=== PATIENT | female | born 1960 | race Caucasian/White ===

== ENCOUNTER 2025-02-12 07:52 | Day surgery (SDC) | payer OTHER, SELFPAY ==
--- OUTSIDE RECORDS SUMMARY | 2025-01-20 12:19 | XMS_ITS | Continuity of Care Document ---
Author Organization [facility] [address] [facility] [address] [place] [address] Phone [phone] Social History Type Date Description Comments Sex Unknown Medical Devices Description No Information Available Encounters Description No Information Available Assessments Description No Information Available Plan of Treatment No Information Available Functional Status Description No Information Available Mental Status Description No Information Available Referrals Description No Information Available
--- OUTSIDE RECORDS SUMMARY | 2025-01-20 12:19 | XMS_ITS ---
Author Organization [facility] Address [address] [place] [phone] Care Team Providers Care Director Telecommunications Name Role Phone Natasha Mg N.P Primary Care Provider Unavail amelia Aguayo Jr, Virgil Unavailable REASON FOR VISIT tested positive for covid Encounters Encounter Location Date Provider Diagnosis [facility] [address] [facility] [address] [place] [phone] 10/07/2024 Virgil Aguayo Jr PLAN OF TREATMENT Next Appt Details Provider Name:Virgil roy Jr, 02/12/2025 09:10:00 AM, [address] [place] [address] , [place], [place], [phone],
--- OUTSIDE RECORDS SUMMARY | 2025-01-20 12:19 | XMS_ITS ---
Author Organization [facility] Address [address] [facility] [address] [place] [phone] Care Team Providers Care Spring Intern Name Role Phone Natasha Mg N.P Primary Care Provider Unavail able Olivier Gao, Virgil Unavailable REASON FOR VISIT Patient presents today for a SCREENING COLON Encounters Encounter Location Date Provider Diagnosis [facility] [address] [place] [phone] 10/07/2024 Virgil Aguayo Jr PLAN OF TREATMENT Next Appt Details Provider Name:Virgil roy Jr, 02/12/2025 09:10:00 AM, [address] [facility] , [place], [place], [phone],
--- OUTSIDE RECORDS SUMMARY | 2025-01-20 12:19 | XMS_ITS ---
Author Name [facility] [place] [facility] [place] [facility] [place] Address [address] [place] [address] Care Team Providers Care Fiscal Economist Name Role Phone NATASHA MG Primary Care Provider Unavailabl e Insurance Providers: All historical and current Section Date Range: From patient's date of to the date document was created. This section includes the names of all active insurance providers for the patient. Insurance Provider Type of Coverage Plan Name Start of Policy Coverage End of Policy Coverage Group Number Member ID Insurance Provider's Telephone Number Policy Tapia's Name Patient's Relationship to Policy Tapia [facility]BS [facility] Jun 01, 2021 [id number] [phone] WEBER,DO NNA PATIENT ANTHEM BCBS OF [place] (BLUECARD) HIGH DEDUCTIBL E HEALTH PLAN [facility] HDHP Jun 01, 2021 52 [id number] WEBER,DO NNA PATIENT [place] MED[place] Jun 01, 2024 [id number] [phone] WEBER,DO NNA PATIENT BCBS [facility] Jun 01, 2020 [id number] [id number] WEBER,DO NNA PATIENT BCBS [facility] CE ORGANIZ CEN[place] Jun 01, 2016 [id number] WEBER,DO NNA PATIENT BCBS [facility] CE [facility]GANIZ [facility] May 02, 2011 [id number] WEBER,DO NNA PATIENT [place]IGH DEDUCTIBL E [facility] HDHP Jun 01, 2021 [id number] WEBER,DO NNA PATIENT BCBS OF [facility] TTS HIGH DEDUCTIBL E [facility] T HDHP Jun 01, 2021 [id number] WEBER,DO NNA PATIENT [employer] ([id number]) PRESCRIPT ION (HD ) Jun 01, 2021 [id number] WEBER,DO NNA PATIENT [employer] ([id number]) PRESCRIPT ION L4TA Jun 01, 2021 L4TA [id number] WEBER,DO NNA PATIENT [employer] ([id number]) PRESCRIPT ION L4TA HDHP Jun 01, 2021 L4TA [id number] WEBER,DO NNA PATIENT [employer] ([id number]) PRESCRIPT ION (HD ) Jun 01, 2021 L4TA [id number] WEBER,DO NNA PATIENT [employer] ([id number]) PRESCRIPT ION L4TA* May 02, 2011 L4TA [id number] WEBER,DO NNA PATIENT [employer] ([id number]) PRESCRIPT ION L4TA* May 02, 2011 L4TA [id number] WEBER,DO NNA PATIENT [employer] ([facility] [facility]) PRESCRIPT ION [facility] Jun 01, 2021 L4TA [id number] WEBER,DO NNA PATIENT MEDICARE (WNR) MEDICARE (M) PART A Jun 01, 2024 PART A [id number] WEBER,DO NNA PATIENT MEDICARE (WNR) MEDICARE (M) PART B Jun 01, 2024 PART B [id number] WEBER,DO NNA PATIENT [facility] CE ORGANIZ NON-G ROUP Dec 02, 2001 [facility] [id number] WEBER,DO NNA PATIENT [facility] PREFERRED PROVIDER ORGANIZAT ION (PPO) [place] [facility] IN[facility] N Sep 01, 2007 [id number] WEBER,DO NNA SPOUSE Selected Encounter This section includes the information on record at [place] for the Encounter. Date/Time Encounter Type Encounter Description Reason Provider Source Jan 27, 2024 09:39 AM MTMS BY PHARM EST 15 MIN CLINICAL PHARMACY ICD-10-CM Z79.01 [facility]PC (current) use of anticoagulants MAGDA CASTRO Alexander Encounter Template Text not used by [place] Assessments - Encounter Diagnoses This section includes the primary and secondary diagnoses documented for the Encounter. Date/Time Primary/Secondary Diagnosis Diagnosis Name Provider Source Jan 27, 2024 10:04 AM PRIMARY computer terminal operator (current) use of anticoagulants [facility] [place] [facility] Jan 27, 2024 10:04 AM SECONDARY Other pulmonary embolism without acute cor pulmonale [facility]STRO [facility] Plan of Treatment: Future Appointments (+ 6 months) and Future Tests (+/- 45 days) The Plan of Treatment section includes future care activities for the patient from all [place] treatmentfacilities. This section includes future appointments and future orders which are active, pending or scheduled. Future Appointments This section includes appointments that were scheduled to occur 6 months from the date of the Encounter, up to a maximum of 20 appointments. The data comes from all [place] treatment facilities. Appointment Date/Time Appointment Type Appointme nt Facility Name Jan 28, 2024 03:00 PM AMBULATORY - MEDICINE [facility] [place] [facility] Feb 17, 2024 10:00 AM AMBULATORY MEDICINE [facility] [place] [facility] Feb 21, 2024 08:45 AM AMBULATORY - MEDICINE [place] [facility] [place] [facility] Mar 13, 2024 04:00 PM AMBULATORY - MEDICINE [place] [facility] [place] [facility] April 08, 2024 02:30 PM AMBULATORY - MEDICINE [place] [facility] [place] [facility] April 09, 2024 01:00 PM AMBULATORY - MEDICINE [place] [facility] Social History: Smoking Status (Most current) and Tobacco Use (All prior to encounter date) This section includes the most current, and the historical, smoking and tobacco- related health factors from the [place] facility where the Encounter took place. Current Smoking Status This section includes the most current smoking, or tobacco-related health factor, from the [place] facility where the Encounter took place. Date/Time Current Smoking Status Comment Facil it Mar 25, 2023 01:30 PM VA-TOBACCO FORMER USER [place] [facility] Tobacco Use History This section includes a history of the smoking, or tobacco-related health factors, that were collected on or before the date of the Encounter. The data comes from the [place] facility where the Encounter took place. Date/Time Smoking Status/Tobac co Use Comment Facility Mar 25, 2023 01:30 PM VA-TOBACCO QUIT 15 YRS OR MORE [place] [facility] [place] [facility] Feb 14, 2022 01:30 PM VA-TOBACCO FORMER USER [facility] [place] [facility] Feb 14, 2022 01:30 PM VA-TOBACCO QUIT 5 TO < 15 YRS [place] [facility] [place] [facility] Nov 04, 2020 01:30 PM VA-TOBACCO NEVER USED VA [facility] [place] [facility] May 05, 2019 01:13 PM VA-TOBACCO NEVER USED VA [facility] [place] [facility] Jan 09, 2018 09:45 AM QUIT TOBACCO USE > 7 YEARS AGO [facility] [place] [facility] Nov 06, 2016 10:01 AM QUIT TOBACCO USE > 7 YEARS AGO Quit in 1995 [place] [facility] [place] [facility] Nov 05, 2015 09:40 AM QUIT TOBACCO USE > 7 YEARS AGO Quit in 1995 [place] [facility] [place] [facility] Feb 07, 2007 10:37 AM QUIT TOBACCO USE > 7 YEARS AGO quit 15 years ago [facility] Advance Directives: All historical and current Section Date Range: From patient's date of to the date document was created. This section includes ALL of a patient's completed or amended [place] Advance and Rescinded Directives. The entries below indicate that a directive exists for the patient, but an actual copy is not included with this document. The data comes from all [place] facilities. Date Advance Directives Provider Source Nov 07, 2006 ADVANCE DIRECTIVE [facility] Radiology Reports: +/- 30 days of the encounter Radiology Reports For cases when an order for radiology services may have been completed prior to the date of the Encounter, the report list includes the Radiology Reports that were completed up to 30 days before dateof the Encounter. For cases when an order for radiology services may have been completed after the date of the Encounter, the report list also includes the Radiology Reports that were completed up to30 days after date of the Encounter. The data comes from all [place] treatment facilities. Date/Time Radiology Report Provider Source Feb 21, 2024 08:45 AM OUTSIDE MAMMO/SCRE ENING, INCLUDING CAD, BILAT: WICHO WEBER APRIL [id number] [id number] F Exm Date: FEB 21, 2024@08:45 Req Phys: NATASHA MG Pat Loc: CWM/NO/PACT 5 (Req'g Loc) Img Loc: OUTSIDE GENERAL RADIOLOGY Service: Unknown (Case [id number] COMPLETE) OUTSIDE MAMMO/SCREENING, INCLUDIN(RAD Detailed) CPT:37732 Reason for Study: annual screening mammogram Clinical History: Report Status: Electronically Filed Date Reported: FEB 21, 2024 Report: Community care exam; see CPRS/JLV for outside radiology report/results Impression: Community care exam; see CPRS/JLV for outside radiology report/results Primary Diagnostic Code: BI-RADS CATEGORY 1 (Negative) VERIFIED BY: / *ELECTRONICALLY FILED* [facility] Encounter Notes: All associated encounter notes This section contains the clinical notes associated to the Encounter. Date/Time Encounter Note(s) Provider Source Jan 27, 2024 09:39 AM PHARMACY MEDICATIO N MGT NOTE: LOCAL TITLE: PHARMACY ANTICOAGULATION NOTE STANDARD TITLE: PHARMACY MEDICATION MGT NOTE DATE OF NOTE: JAN 27, 2024@09:39 ENTRY DATE: JAN 27, 2024@09:39:55 AUTHOR: MAGDA CASTRO EXP COSIGNER: URGENCY: STATUS: COMPLETED PHARMACY ANTICOAGULATION NOTE Has ADDENDA Follow-up: Anticoagulation DOAC Agent Progress Note Reason for visit: 4 week f/u for Apixaban/Eliquis Indication: DVT treatment Start Date: 01/03/24 Expected Duration: indefinite Referring Provider: Natasha Mg Patient Contact: Home: Patient has given permission to leave anticoagulation message on answering machine or with person listed. Subjective: Called pt for 4 wk f/u on apixaban. Pt offers below information Apixaban: Missed Doses: No Last Refill: 01/13/24 Refill Needed: No Administration Time: 10am and 10 pm Bleeding: No Dizziness/Vision Changes/Extremity Weakness: No Med Changes: No Alcohol: No Storage of Medication: Appropriate Surgeries/Procedures: No Other: (Optional) Objective: Labs: Patient reports outside Hgb results: Date: January 01, 2024 Results: 14.8 Location: Outside Healthcare Provider Patient reports outside HCT results: Date: January 01, 2024 Results: 43.3 Location: Outside Healthcare Provider Patient reports outside PLT results: Date: January 01, 2024 Results: 210 Location: Outside Healthcare Provider Patient reports outside SCR results: Date: January 01, 2024 Results: 0.8 Location: Outside Healthcare Provider Patient reports outside BUN results: Date: January 01, 2024 Results: 10 Location: Outside Healthcare Provider CRCL IBW: CrCl(est): 61.1 mL/min (Creat:0.77 03/25/23) CRCL ACT: No Creat CRCL ADJ: 61.1 mL/min (03/25/23) LFTs; spoke to patient about updating Vitals: Weight (BMI): 135.5 lb [61.46 kg] (01/10/2024 10:35) Height: 63 in [160.0 cm] (03/25/2023 13:32) BMI: 24.1 Active Outpatient Medications (including Supplies): APIXABAN 5MG TAB TAKE ONE TABLET BY MOUTH EVERY 12 HOURS ACTIVE FOR PREVENTION OF BLOOD CLOTS LEVOTHYROXINE NA (SYNTHROID) 50MCG TAB TAKE ONE TABLET BY ACTIVE MOUTH EVERY MORNING 30 MINUTES BEFORE BREAKFAST TAKE ON AN EMPTY STOMACH WITH A FULL GLASS OF WATER MIRTAZAPINE 30MG TAB TAKE ONE-HALF TABLET BY MOUTH AT ACTIVE BEDTIME FOR DEPRESSION/MOOD TRAMADOL HCL 50MG TAB TAKE TWO TABLETS BY MOUTH THREE ACTIVE TIMES DAILY NEEDED FOR PAIN Non-VA MULTIVITAMIN TAB BY MOUTH ACTIVE Interacting Meds with apixaban: none Assessment/Plan: - Pt taking medication appropriately; denies ADRs - Continue Apixaban 5mg twice daily - Pt has LFT labs ordered for next PCP visit. - Given completion of therapy x 4 weeks w/o concern, will D/C to passive monitoring via DOAC dashboard. Time Spent: 5 minutes Next Appt: N/A Discharge to passive monitoring Next PCP Appt: 03/25/24 EDUCATION Provided with verbal instructions: Yes Provided with written instructions: No Barriers to learning: No Readiness to learn: Yes Specific dose directions reviewed: Yes Opportunity for questions/discussion: Yes Reports understanding of instructions: Yes Further learning needs: No PBM PharmD Pharmacotherapy Rem V12: PHARMACIST INTERVENTIONS: ANTICOAGULATION THERAPY DIRECT ORAL ANTICOAGULANT (DOAC) MANAGEMENT Medication monitoring, no dosage change required, continue to monitor and assess Medication reconciliation (changes to active VA and non-VA medication lists to reconcile differences) No changes to medication lists made (medication review completed, no discrepancies identified) Refer or transition back to provider from Clinical Pharmacist Practitioner clinic Comment: discharge to passive monitoring /anahi/ MAGDA CASTRO PHARMD, [facility] CLINICAL PHARMACIST PRACTITIONER Signed: 01/27/2024 10:04 Receipt Acknowledged By: 01/27/2024 10:08 /es/ EVITA LITTLE CPHT Clinical Wildlife Management Professor 01/27/2024 10:20 /anahi/ Kylee Arias PharmD, [facility] Clinical Consumer Attorney 01/27/2024 ADDENDUM STATUS: COMPLETED Above case reviewed as entered by [facility] CPP in training. Agree with current assessment and plan of care for this patient's anticoagulation management as noted. /anahi/ Kylee Arias PharmD, [facility] Clinical Consumer Attorney Signed: 01/27/2024 10:21 MAGDA CASTRO [facility]
--- OUTSIDE RECORDS SUMMARY | 2025-01-20 12:19 | XMS_ITS | Data Portability ---
Author Organization [place] [facility] Jose Nicholson [place] [place] Address [address] [facility] [address] [place] [address] Care Team Providers Care Salesperson Flowers Name Role Phone KARIN CRUZ Referring Provider Unavailable Assessment Encounter Date Assessment Date Assessment LastModified by Organization Details LastModified Time 11/06/2024 11/06/2024 HPI : Patient is here for second opinion regarding her painful total knee replacement. She has a history of a right total knee replacement at [facility] in November 2021. She states she never felt good afterwards. She has a main complaint of pain. She states it is even worsening. She has difficulty with walking. She has pain at night. She thinks that the pain is worse than it was before surgery. She is not able to take NSAIDs. I reviewed her operative note. Physical Exam : Patient is well nourished, well-developed, in no acute distress, with appropriate mood and affect. The patient is oriented to time, place, and person. Respirations are even and unlabored. There is no inguinal adenopathy. Examination of the contralateral knee shows normal range of motion, strength, no tenderness, and intact skin. The affected limb is well-perfused, with well healed skin incision. The patient demonstrates good knee motion, stability, and strength. The knee moves from 10-105 degrees. The alignment of the knee is neutral. Muscle strength is normal. Pedal pulses are palpable. Hip examination, including flexion and internal rotation, was negative in that groin pain was not produced. Assessment/Plan : Patient has continued pain following right total knee replacement. Exam, imaging, and history do not show any signs of implant related issues including loosening, malposition, instability, periprosthetic fracture, or infection. We obtained ESR and CRP before her visit. This was negative for signs of infection. I discussed with her that there are portion of patients were unhappy with the total knee replacement, and we do not always have an exact reason. Prescribing her an oral steroid taper which should help with inflammation pain around the knee. I discussed with her that revision surgery would likely lead to more pain and issues when there is no known issue. Follow-up with our team as needed. Not available 11/06/2024 13:25:13 Plan of Treatment Reminders Order Date Submit Date Provider Last Modified By Organization Details Last Modified Time Details Appointments None recorded. Lab None recorded. Referral None recorded. Procedures None recorded. Surgeries None recorded. Imaging None recorded. Medication Orders prednisone 10 mg tablet 2023 024 [facility][id number], [address] [place], [address], 13:23:19 Patient TargetsNo targets recorded. Patient Instructions Encounter Date Encounter Id Patient Instructions Last Modified By Organization Details Last Modified Time 11/06/2024 [id number] AP, lateral, and patellar radiographs of the right knee taken today demonstrate satisfactory position and alignment of components following right total knee replacement. This is a PS component. Not available 11/06/2024 13:25:23 Reason for Referral None Reported. Results Created Date Observation Date Name Description Value Unit Range Abnormal Flag Note LastModifiedBy Organization Detail LastModifiedTime 10/08/20 24 10/08/2024 SED RATE BY MODIF JIMMIE SIN sed rate by modified maile 9 mm/h < or = 30 normal Not Available [facility] [address], [address], 10/08/2024 21:01:30 10/08/20 24 10/08/2024 C-JANET CTIVE PROTE IN C-reactive protein <3.0 mg/L <8.0 normal Not Available [facility] [address], [address], 10/08/2024 21:01:30 Result Notes None recorded. Problems Name Problem SNOMED Code Status Onset Date Resolution Date Notes Provider Name and Address Organization Details Recorded Time Pain associated with prosthesis of knee joint 313721006 Active 024 Miky Schulte MD [address] [facility] [address], [place], [phone] [place] [address] [facility] 13:23:06 Problem Notes None recorded. Procedures Surgical History Date Name Laterality Status Provider Name and Address Organization Details Recorded Time total replacement of right knee joint completed [facility] 11/06/2024 13:02:09 excision of left breast completed [facility] 11/06/2024 13:02:24 hysterectomy completed [facility] 11/06/2024 13:02:39 Thyroid Surgery completed [facility], [facility] 11/06/2024 13:03:02 Imaging Results None recorded. Procedure Notes None recorded. Medical Equipment None Reported. Allergies No known drug allergies Medications Name Sig Start Date Stop Date Status Note LastModified by Organization Details LastModified Time prednisone 10 mg tablet 3 tabs QD x 4 days, 2 tabs QD x 4 days, 1 tab QD x 4 days active Not Available Not Available No t Available fluconazole 150 mg tablet TAKE 1 TABLET BY MOUTH ONCE active Not Available Not Available No t Available cephalexin 500 mg capsule TAKE 1 CAPSULE BY MOUTH TWICE A DAY FOR 5 DAYS active Not Available Not Available No t Available oxycodone 5 mg tablet TAKE 1 TABLET BY MOUTH EVERY 6 HOURS NEEDED FOR SEVERE PAIN FOR 5 DAYS active Not Available Not Available No t Available cyclobenzaprin e 5 mg tablet active Not Available Not Availabl e Not Available Eliquis DVT-PE Treatment 30-Day Starter 5 mg (74 tablets) in dose pack TAKE 2 TABLETS BY MOUTH TWO TIMES A DAY THROUGH THE MORNING OF 01/08. STARTING THE EVENING OF OF 01/08, TAKE 1 TABLET TWO TIMES A DAY THEREAFTE R. active Not Available Not Available No t Available Vitals Date Recorded Body height Provider Name an d Address Organization Details Last Updated DateTime 11/06/2024 154.94 cm [facility] 11/06/2024 13:00:03 Social History Question Answer Notes LastModified by Organizat ion Details LastModified Time Tobacco Smoking Status Never Smoker Juliette Gonzales null, [place] [facility] 11/06/2024 13:00:34 What Is Your Level Of Alcohol Consumption? None Information not available 11/06/2024 Do You Use Any Illicit Or Recreational Drugs? No Information not available 11/06/2024 Sex: Unknown Functional Status None recorded. Mental Status None recorded. Family History Nothing Reported. Medical History Condition Response Hypothyroidism Y Bleeding Disorder Y Cancer Y Rheumatoid Arthritis Y Gynecological HistoryNo gynecological history recorded. Obstetrics History GPAL:G 0 P 0 0 0 0 Past Encounters Encounter ID Performer Location Encounter Start Date Encounter Closed Date Diagnosis/Indication Diagnosis SNOMED-CT Code Diagnosis ICD10 Code Diagnosis Note [id number] MD KENIA Noel [address] [address] 11/06/2024 12:50:38 11/06/2024 13:27:16 Pain associated with prosthesis of knee joint [id number] T84.84XA Z96.651 Health Concerns Section Related Observation LastModified by Organization Detai ls LastModified Time None Recorded Concern Status LastModified by Organization Details LastModified Time None Recorded Advance Directives Directive None Recorded Payers Encounter Date Sequence Insurance Name Policy Number Policy Tapia Covered Member ID Tapia Member ID Guarantor Name 11/06/2024 1 [place] [employer] Prabha Martinez [id number] Prabha Martinez 11/06/2024 2 [place] [id number] Prabha Martinez [id number] Prabha Martinez OBGyn Episode No OBEpisode recorded.
--- OUTSIDE RECORDS SUMMARY | 2025-01-20 12:19 | XMS_ITS | Patient Health Record ---
Author Organization [facility] Address [address] [place] [address] Care Team Providers Care Medical Dir Name Role Phone Natasha Mg N.P Primary Care Provider Unavail able Virgil Aguayo Jr Unavailable Alex Jalil Unavailable [phone] ALLERGIES No Known Allergies REASON FOR REFERRAL Referring Provider First Name Natasha Referring Provider Last Name Saurav Referred Organization [facility] Referred Provider Virgil Aguayo Jr Referred Address [address],[place], [place],[address],[place] Referred Provider Specialty Gastroentero logy General Notes Neeta Henry 2024 03:44:40 PM >pt has a colon with Dr. Aguayo on 02-12-2025 but our referral states it terminated on 11-18-25. She states she received an extension on this referral and it expires in March 2025. Requested a copy of the new authorization from Criss Velasquez at the [place] Referral Priority Routine MEDICATIONS Medication SIG (Take, Route, Frequency, Duration) Notes Start Date End Date Status Levothyroxine Sodium 50 MCG 1 tablet in the morning on an empty stomach Orally Once a day for 30 day(s) 12/03/2024 Active Apixaban 2.5 MG as directed Orally 12/03/2024 Active Atorvastatin Calcium 10 MG 1 tablet Oral ly Once a day 12/03/2024 Active MiraLax (colon prep) 17 GM/SCOOP mixed with Gatorade or Crystal Light Orally begin at 5:00 p.m. the day before the procedure for 1 day 12/03/2024 Active IMMUNIZATIONS Vaccine Route Administration Date Status Comme nts Influenza Unknown 12/03/2024 Refused SOCIAL HISTORY Tobacco Use: Social History Observation Description Date Details (start date - stop date) Never Smoker NA - NA Sex Assigned At : Social History Observation Description Sex Assigned At Unknown Tobacco Use/Smoking Question Answer Notes Patient is a nonsmoker Alcohol Screen Question Answer Notes Did you have a drink containing alcohol in the p ast year? No Points 0 Interpretation Negative PROBLEMS Problem Type ICD Code Onset Dates Problem Status W/U Status Risk SNOMED Code Notes Problem Colon cancer screening (Z12.11) Active confirmed 219357515 Problem long-term (current) use of anticoagulants (Z79.01) Active confirmed 878423225 VITAL SIGNS Temperature 97.5 degrees Fahrenheit 12/03/2024 Blood pressure diastolic 00 mm Hg 12/03/2024 Height 5 ft in 12/03/2024 Blood pressure systolic 000 mm Hg 12/03/2024 Weight 146 lb 8 oz lbs 12/03/2024 BMI 28.61 kg/m2 12/03/2024 Encounters Encounter Location Date Provider Diagnosis [facility] [address] [place] [phone] 08/20/2024 Jalil Johnson [facility] [address] [place] [phone] 10/07/2024 Virgil Aguayo Jr [facility] [address] [place] [phone] 12/03/2024 Virgil Aguayo Jr Colon cancer screening Z12.11 and field care advocate (current) use of anticoagulants Z79.01 [facility] [address] [place] [phone] 07/06/2024 Virgil Aguayo Jr [facility] [address] [place] [phone] 10/07/2024 Virgil Aguayo Jr ASSESSMENTS Encounter Date Diagnosis Assessment Notes Treatment Notes Treatment Clinical Notes 12/03/2024 Colon cancer screening (ICD-10 - Z12.11) Colonoscopy material was printed 12/03/2024 long-term (current) use of anticoagulants (ICD-10 - Z79.01) PLAN OF TREATMENT Future Test Test Name Order Date COLONOSCOPY 12/03/2024 Next Appt Details Provider Name:Virgil roy Jr, 02/12/2025 09:10:00 AM, [address] [place] [address] , [place], [phone], Insurance Providers Payer Name Payer Address Payer Phone Subscriber Number Group Number Insured Name Patient Relationship to Insured Coverage Start Date Coverage End Date [facility] [employer] [address] [place] [phone] [id number] GUS WICHO Self - patient is the insured MEDICAL (GENERAL) HISTORY Medical History History ICD Code Pulmonary embolus in 2023 Hyperlipidemia Partial thyroidectomy Osteoarthritis Surgical History Surgery Date(Month/Year) Knee replacement, right 11/21 Left mastectomy 2018 hysterectomy Hospitalization History Reason Date(Month/Year) Pulmonary embolism 12/25
--- OUTSIDE RECORDS SUMMARY | 2025-01-20 12:19 | XMS_ITS ---
Author Organization [facility] Address [address] [place] [address] Care Team Providers Care Restaurant Line Cook Name Role Phone Natasha Mg N.P Primary Care Provider Unavail able Virgil Aguayo Jr Unavailable ALLERGIES No Known Allergies REASON FOR VISIT Patient presents today for a screening colon MEDICATIONS Medication SIG (Take, Route, Frequency, Duration) [...] Problem Colon cancer screening (Z12.11) Active confirmed 740371305 Problem manager terminal (current) use of anticoagulants (Z79.01) Active confirmed 412415513 VITAL SIGNS BMI 28.61 kg/m2 12/03/2024 Blood pressure systolic 000 mm Hg 12/03/19 25 Blood pressure diastolic 00 mm Hg 025 Height 5 ft in 12/03/2024 Temperature 97.5 degrees Fahrenheit 12/03/19 25 Weight 146 lb 8 oz lbs 12/03/2024 Encounters Encounter Location Date Provider Diagnosis [facility] [address] [place] [address] 12/03/2024 Virgil Aguayo Jr Colon cancer screening Z12.11 and [facility] (current) use of anticoagulants Z79.01 ASSESSMENTS Encounter Date Diagnosis Assessment Notes Treatment Notes Treatment Clinical Notes 12/03/2024 Colon cancer screening (ICD-10 - Z12.11) Colonoscopy material was printed 12/03/2024 manager terminal (current) use of anticoagulants (ICD-10 - Z79.01) PLAN OF TREATMENT Medication Medication Name Sig Start Date Stop Date Notes MiraLax (colon prep) 17 GM/SCOOP mixed with Gatorade or Crystal Light Orally begin at 5:00 p.m. the day before the procedure for 1 day 12/03/2024 Treatment Notes Assessment Notes Colon cancer screening Colonoscopy mater ial was printed Future Test Test Name Order Date COLONOSCOPY 12/03/2024 Next Appt Details Follow Up: 1 Year, Reason: Provider Name:Virgil roy Jr, 02/12/2025 09:10:00 AM, [address] [place] [address] , [place], [place], [phone], Progress Notes * Examination Category Sub-Category Detail Notes General Examination GENERAL APPEARANCE: in no ac agdaagux distress HEAD: normocephalic EYES: sclera non-icteric NECK/THYROID: no lymphadenopathy HEART: S1, S2 normal, no mu rmurs CHEST: normal shape and exp ansion LUNGS: clear to auscultatio n bilaterally ABDOMEN: soft, nontender, non distended, bowel sounds present, no organomegaly SKIN: anicteric EXTREMITIES: no clubbing, cyanosi s, or edema PSYCH: cognitive function i ntact ORAL CAVITY: mucosa moist
--- OUTSIDE RECORDS SUMMARY | 2025-01-20 12:19 | XMS_ITS | Encounter Summary ---
Author Name [facility] [facility] [place] Address [address] [place] [address] Care Team Providers Care Traffic Administrator Name Role Phone BRITTANY RIBERA Primary Care Provider Unavailabl e Insurance Providers: [...] Tapia's Name Patient's Relationship to Policy Tapia [facility] ION [facility] Jun 01, 2021 [id number] [phone] WEBER,DO NNA PATIENT ANTHEM BCBS OF CT (BLUECARD) HIGH DEDUCTIBL E [facility] HD Jun 01, 2021 [id number] WEBER,DO NNA PATIENT BCBS [place] MEDICARE SUPP[facility] [place] [facility] [place] Jun 01, 2024 [id number] WEBER,DO NNA PATIENT BCBS [facility] Jun 01, 2020 [id number] [phone] WEBER,DO NNA PATIENT BCBS [facility] CE ORGANIZ CENTR [place] MARIE OTEROA Jun 01, 2016 [id number] WEBER,DO NNA PATIENT BCBS [facility] CE ORGANIZ [facility] May 02, 2011 [id number] WEBER,DO NNA PATIENT [place] OF [place] HIGH DEDUCTIBL E [facility] HDHP Jun 01, 2021 [id number] WEBER,DO NNA PATIENT BCBS OF [facility] TTS HIGH DEDUCTIBL E [facility] T HDHP Jun 01, 2021 [id number] [phone] WEBER,DO NNA PATIENT [employer] ([id number]) PRESCRIPT ION (HDHP ) Jun 01, 2021 L4TA [id number] WEBER,DO NNA PATIENT [employer] ([id number]) PRESCRIPT ION L4TA Jun 01, 2021 L4TA [id number] WEBER,DO NNA PATIENT [employer] ([id number]) PRESCRIPT ION L4TA HDHP Jun 01, 2021 L4TA [id number] [phone] WEBER,DO NNA PATIENT [employer] ([id number]) PRESCRIPT ION (HDHP ) Jun 01, 2021 L4TA [id number] WEBER,DO NNA PATIENT [employer] ([id number]) PRESCRIPT ION L4TA* May 02, 2011 L4TA [id number] [phone] WEBER,DO NNA PATIENT [employer] ([id number]) PRESCRIPT ION L4TA* May 02, 2011 L4TA [id number] [phone] WEBER,DO NNA PATIENT [facility] ([facility]) PRESCRIPT ION [facility] Jun 01, 2021 L4TA [id number] WEBER,DO NNA PATIENT MEDICARE (WNR) MEDICARE (M) PART B Jun 01, 2024 PART B [id number] [id number] DO GUS NNA PATIENT MEDICARE (WNR) MEDICARE (M) PART A Jun 01, 2024 PART A [id number] GUS, NNA PATIENT [facility] CE ORGANIZ NON-G ROUP Dec 02, 2001 [facility] [id number] DO VALERIO WEBER [facility]IENT [facility] PREFERRED PROVIDER ORGANIZAT ION (PPO) [facility] N Sep 01, 2007 [id number] DO VALERIO WEBER SPOUSE Selected Encounter This section includes the information on record at [place] for the Encounter. Date/Time Encounter Type Encounter Description Reason Pro vider Source Jan 13, 2025 11:41 AM Outpatient Encounter ADMIN PAT ACTIVTIES (MASNONCT) IHE Encounter Template Text not used by [place] Plan of Treatment: Future Appointments (+ 6 months) and Future Tests (+/- 45 days) The Plan of Treatment section includes future care activities for the patient from all [place] treatmentfacilities. This section includes future appointments and future orders which are active, pending or scheduled. Future Appointments This section includes appointments that were scheduled to occur 6 months from the date of the Encounter, up to a maximum of 20 appointments. The data comes from all [place] treatment facilities. Appointment Date/Time Appointment Type Appointme nt Facility Name Jan 25, 2025 02:30 PM AMBULATORY - MEDICINE [facility] [place] [facility] April 07, 2025 02:30 PM [facility] [place] [facility] Active, Pending, and Scheduled Orders This section includes a listing of several types of active, pending, and scheduled orders, including clinic medications orders, diagnostic test orders, procedure orders and consult orders; where the start date of the order is 45 days before the date of the Encounter or 45 days after the date of theEncounter. The data comes from all [place] treatment facilities. Test Date/Time Test Type Test Details Facility Name Jan 11, 2025 08:00 AM Consult Order COMMUNITY CARE-MAMMOGRAPHY FEMALE SCREEN Cons Arboriculture Instructor's Choice [facility] [place] [facility] Social History: Smoking Status (Most current) and Tobacco Use (All prior to encounter date) This section includes the most current, and the historical, smoking and tobacco- related health factors from the [place] facility where the Encounter took place. Current Smoking Status This section includes the most current smoking, or tobacco-related health factor, from the [place] facility where the Encounter took place. Date/Time Current Smoking Status Comment Facil it April 08, 2024 02:30 PM VA-TOBACCO QUIT 15 YRS OR MORE [facility] Tobacco Use History This section includes a history of the smoking, or tobacco-related health factors, that were collected on or before the date of the Encounter. The data comes from the [place] facility where the Encounter took place. Date/Time Smoking Status/Tobac co Use Comment Facility April 08, 2024 02:30 PM VA-TOBACCO QUIT 15 YRS OR MORE [facility] [place] [facility] Mar 25, 2023 01:30 PM VA-TOBACCO FORMER USER [facility] [place] [facility] Mar 25, 2023 01:30 PM VA-TOBACCO QUIT 15 YRS OR MORE [facility] [place] [facility] Feb 14, 2022 01:30 PM VA-TOBACCO FORMER USER [place] [facility] [place] [facility] Feb 14, 2022 01:30 PM VA-TOBACCO QUIT 5 TO < 15 YRS [facility] [place] [facility] Nov 04, 2020 01:30 PM VA-TOBACCO NEVER USED [facility] [place] [facility] May 05, 2019 01:13 PM VA-TOBACCO NEVER USED [facility] [place] [facility] Jan 09, 2018 09:45 AM QUIT TOBACCO USE > 7 YEARS AGO [facility] [place] [facility] Nov 06, 2016 10:01 AM QUIT TOBACCO USE > 7 YEARS AGO Quit in 1995 [place] [facility] [place] [facility] Nov 05, 2015 09:40 AM QUIT TOBACCO USE > 7 YEARS AGO Quit in 1995 [place] [facility] [place] [facility] Feb 07, 2007 10:37 AM QUIT TOBACCO USE > 7 YEARS AGO quit 15 years ago [facility] [place] [facility] Advance Directives: All historical and current Section Date Range: From patient's date of to the date document was created. This section includes ALL of a patient's completed or amended [place] Advance and Rescinded Directives. The entries below indicate that a directive exists for the patient, but an actual copy is not included with this document. The data comes from all [place] facilities. Date Advance Directives Provider Source Nov 07, 2006 ADVANCE DIRECTIVE [employer] Shayna [facility] Encounter Notes: All associated encounter notes This section contains the clinical notes associated to the Encounter. Date/Time Encounter Note(s) Provider Source Jan 13, 2025 11:51 AM ADDENDUM: LOCAL TITLE: Addendum STANDARD TITLE: ADDENDUM DATE OF NOTE: JAN 13, 2025@11:51:15 ENTRY DATE: JAN 13, 2025@11:51:15 AUTHOR: KAROLYN MOTA EXP COSIGNER: URGENCY: STATUS: COMPLETED PACT RN returned call Palmer was seen by outside provider reports lab test were done /questions about changes in medication upcoming colonscopy- discussed with PCP Rn request to send labs work to [place]. Adding AMSA -Please schedule for sooner PCP appointment /es/ KAROLYN MOTA REGISTERED NURSE Signed: 01/13/2025 14:19 Receipt Acknowledged By: 01/13/2025 14:45 /anahi/ GINNY MCGINNIS Advanced Straw Hat Plunger Operator === --- Original Document --- 01/13/25 CCC: SCHEDULING ADMINISTRATION: Patient Demographics Patient Name: WICHO WEBER Patient Primary Phone: [phone] Patient Primary [address]: [address] [place] [phone] Patient : 1960 Patient Age: 64 Caller/Recipient Relation to Patient: Self Caller Name: WICHO WEBER Administrative Administrative Note Reason: Other Administrative Note Comments: Pt. was seen by [facility] PCP, and her D-Dimer test was positive, elevated. Pt. Eliquis (apixaban) was changed July 2024, reduced to 2mg BID from 5mg BID. Pt. and [facility] PCP are inquiring if [place] PCP would like pt. to increase Eliquis back to 5mg BID. Please call pt. to discuss. P: [phone] IMPORTANT: This note was created by [facility] staff. Please do not alert the staff member by adding them as a signer for future communications. Alerts are not monitored by this user. /anahi/ DANIKA TORRES VISN1 CCC AMSA Signed: 01/13/2025 11:41 Receipt Acknowledged By: 01/13/2025 11:56 /es/ KAROLYN MOTA REGISTERED NURSE * AWAITING SIGNATURE * CARMEN FIELDS 01/13/2025 ADDENDUM STATUS: COMPLETED Appt scheduled for 01/25. /anahi/ GINNY MCGINNIS Advanced Straw Hat Plunger Operator Signed: 01/13/2025 14:44 KAROLYN MOTA [place] [facility] [place] [facility] Jan 13, 2025 11:41 AM ADMINISTRATIVE NOTE: LOCAL TITLE: CCC: SCHEDULING ADMINISTRATION STANDARD TITLE: ADMINISTRATIVE NOTE DATE OF NOTE: JAN 13, 2025@11:41:24 ENTRY DATE: JAN 13, 2025@11:41:24 AUTHOR: DANIKA TORRES EXP COSIGNER: URGENCY: STATUS: COMPLETED CCC: SCHEDULING ADMINISTRATION Has ADDENDA Patient Demographics Patient Name: WICHO WEBER Patient Primary Phone: [phone] Patient Primary [address]: [address] [place] [phone] Patient : 1960 Patient Age: 64 Caller/Recipient Relation to Patient: Self Caller Name: WICHO WEBER Administrative Administrative Note Reason: Other Administrative Note Comments: Pt. was seen by [facility] PCP, and her D-Dimer test was positive, elevated. Pt. Eliquis (apixaban) was changed July 2024, reduced to 2mg BID from 5mg BID. Pt. and [place] PCP are inquiring if [place] PCP would like pt. to increase Eliquis back to 5mg BID. Please call pt. to discuss. P: [phone] IMPORTANT: This note was created by [facility] Contact [facility] staff. Please do not alert the staff member by adding them as a signer for future communications. Alerts are not monitored by this user. /es/ DANIKA TORRES VISN1 [facility] AMSA Signed: 01/13/2025 11:41 Receipt Acknowledged By: 01/13/2025 11:56 /es/ KAROLYN MOTA REGISTERED NURSE 01/13/2025 15:03 /es/ Carmen Fields RN Primary Care Staff Nurse 01/13/2025 ADDENDUM STATUS: COMPLETED PACT RN returned call was seen by outside provider reports lab test were done /questions about changes in medication upcoming colonscopy- discussed with PCP Rn request to send labs work to [place]. Adding AMSA -Please schedule for sooner PCP appointment /anahi/ KAROLYN MOTA REGISTERED NURSE Signed: 01/13/2025 14:19 Receipt Acknowledged By: 01/13/2025 14:45 /es/ GINNY MCGINNIS Advanced Straw Hat Plunger Operator 01/13/2025 ADDENDUM STATUS: COMPLETED Appt scheduled for 01/25. /anahi/ GINNY MCGINNIS Advanced Straw Hat Plunger Operator Signed: 01/13/2025 14:44 01/14/2025 ADDENDUM STATUS: COMPLETED Per package insert for apixaban and per CPP: Apixiban should be discontinued at least 24 hours prior to Colonoscopy Apixiban should be restarted after the invasive procedure or surgical intervention typically the day after. If you can let wicho know this or if she is coming to see me I can review with her more in depth at that appt thanks /anahi/ JAVIER HINES Nurse Practitioner Signed: 01/14/2025 12:53 Receipt Acknowledged By: * AWAITING SIGNATURE * KAROLYN MOTA APRIL J [facility]
--- OUTSIDE RECORDS SUMMARY | 2025-01-20 12:19 | XMS_ITS | Encounter Summary ---
Author Name [facility] [place] [facility] [place] Address [address] [place] [address] Care Team Providers Care Financial Services Officer Name Role Phone BRITTANY MG Primary Care Provider Unavailabl e Insurance [...] Patient's Relationship to Policy Tapia [facility] Jun 01, 2021 [id number] [phone] WEBER,DO NNA PATIENT ANTHEM BCBS OF [place] (BLUECARD) HIGH DEDUCTIBL E HEALTH PLAN [facility] Jun 01, 2021 [id number] WEBER,DO NNA PATIENT [place]BS [place] MED[place]ARE [facility] Jun 01, 2024 [id number] WEBER,DO NNA PATIENT BCBS [facility] Jun 01, 2020 [id number] WEBER,DO NNA PATIENT BCBS [facility] ORGANIZ CENTR AL MA COLLShayna BORA Jun 01, 2016 [id number] WEBER,DO NNA PATIENT BCBS [facility]GAN[facility] May 02, 2011 [id number] WEBER,DO NNA PATIENT [place]IGH DEDUCTIBL E [facility] Jun 01, 2021 [id number] WEBER,DO NNA PATIENT [facility] E [facility] Jun 01, 2021 [id number] [phone] WEBER,DO NNA PATIENT [facility] ([id number]) PRESCRIPT ION ([facility] ) Jun 01, 2021 L4TA [id number] WEBER,DO NNA PATIENT [facility] ([id number]) PRESCRIPT ION L4TA Jun 01, 2021 L4TA [id number] WEBER,DO NNA PATIENT [facility] ([id number]) PRESCRIPT ION L4TA HDHP Jun 01, 2021 L4TA [id number] WEBER,DO NNA PATIENT [facility] ([id number]) PRESCRIPT ION ([facility] ) Jun 01, 2021 L4TA [id number] WEBER,DO NNA PATIENT [facility] ([id number]) PRESCRIPT ION L4TA* May 02, 2011 L4TA [id number] WEBER,DO NNA PATIENT [facility] ([id number]) PRESCRIPT ION L4TA* May 02, 2011 L4TA [id number] [phone] WEBER,DO NNA PATIENT [facility] ([facility]) PRESCRIPT ION [facility] Jun 01, 2021 L4TA [id number] WEBER,DO NNA PATIENT MEDICARE (WNR) MEDICARE (M) PART A Jun 01, 2024 PART A [id number] [phone] DO GUS NNA PATIENT MEDICARE (WNR) MEDICARE (M) PART B Jun 01, 2024 PART B [id number] [phone] DO GUS NNA PATIENT [facility] CE ORGANIZ NON-G ROUP Dec 02, 2001 [facility] [id number] [phone] DO VALERIO WEBER [facility]IENT [facility] PREFERRED PROVIDER ORGANIZAT ION (PPO) [facility] N Sep 01, 2007 [id number] DO VALERIO WEBER SPOUSE Selected Encounter This section includes the information on record at [place] for the Encounter. Date/Time Encounter Type Encounter Description Reason Provider Source Mar 18, 2024 11:29 AM QNHP OL DIG ASSMT&MGMT 11-20 PAIN CLINIC ICD-10-CM M54.2 Cervicalgia MEDHAT COSTELLO [facility] Encounter Template Text not used by [place] Assessments - Encounter Diagnoses This section includes the primary and secondary diagnoses documented for the Encounter. Date/Time Primary/Secondary Diagnosis Diagnosis Name Provider Source Mar 18, 2024 12:02 PM PRIMARY Cervicalgia MEDHAT COSTELLO [facility] [facility] Mar 18, 2024 12:02 PM SECONDARY Primary osteoarthritis, unspecified site MEDHAT COSTELLO [facility] [place] [facility] Plan of Treatment: Future Appointments (+ 6 months) and Future Tests (+/- 45 days) The Plan of Treatment section includes future care activities for the patient from all [place] treatmentfacilities. This section includes future appointments and future orders which are active, pending or scheduled. Future Appointments This section includes appointments that were scheduled to occur 6 months from the date of the Encounter, up to a maximum of 20 appointments. The data comes from all [place] treatment facilities. Appointment Date/Time Appointment Type Appointme nt Facility Name April 08, 2024 02:30 PM [facility] [place] [facility] April 09, 2024 01:00 PM [facility] Active, Pending, and Scheduled Orders This section includes a listing of several types of active, pending, and scheduled orders, including clinic medications orders, diagnostic test orders, procedure orders and consult orders; where the start date of the order is 45 days before the date of the Encounter or 45 days after the date of theEncounter. The data comes from all [place] treatment facilities. Test Date/Time Test Type Test Details Facility Name April 08, 2024 03:37 PM Consult Order COMMUNITY CARE-COLONOSCOPY Cons Named Account Executive's Choice [facility] Lab Results: +/- 30 days of the encounter This section includes the Chemistry and Hematology Lab Results on record with [place] for the patient. Radiology Reports and Pathology Reports are provided separately, in subsequent sections. Lab Results This section contains the Chemistry/Hematology Results that were resulted 30 days before or 30 daysafter the date of the Encounter. Date/Time Source Result Type Result - Unit Interpretation Reference Range Comment April 08, 2024 03:01 PM [facility] TRAMADOL PNL ([facility]) Specimen Type: URINE Comment: REFERENCE RANGE: <100 ng/mL REFERENCE RANGE: <100 ng/mL See LDT message See Tramadol Message Test Performed by [facility], [facility], [address] [place] [address] Chris Thomas M.D., Ph.D., Director of Laboratories , CLIA [id number] This drug testing is for medical treatment only. Analysis was performed as non-forensic testing and these results should be used only by healthcare providers to render diagnosis or treatment, or to monitor progress of medical conditions. LDT Message: This test was developed and its analytical performance characteristics have been determined by [facility] [place], [place]. It has not been cleared or approved by the U.S. Food and Drug Administration. This assay has been validated pursuant to the CLIA regulations and is used for clinical purposes. Tramadol Message: Tramadol, Desmethyltramad ol detected is consistent with the use of the drug Tramadol. Healthcare Providers needing Interpretation assistance, please contact us at [phone] M-F, 8am to 10pm EST TEST PERFORMED AT: , Ordering Provider: MEDHAT COSTELLO Report Released Date/Time: Mar 18, 2024 12:04 PM Reporting Lab: [facility] [address] [facility] [address] Performing Lab: [facility] [address] [address] TRAMADOL,URINE >5000 ng/mL H SEE BELOW DESMETHYLTRAMAD OL >5000 ng/mL H SEE BELOW April 08, 2024 03:01 PM [facility] METHADONE SCREEN Specimen Type: URINE Comment: YESY test are qualitative, any L or H flags only indicate a [facility] alert was sent. Ordering Provider: MEDHAT COSTELLO Report Released Date/Time: Mar 18, 2024 12:04 PM Reporting Lab: [facility] [address] [facility] [address] Performing Lab: [facility] [address] [facility] [address] METHADONE SCREEN None detected(Negati ve) L Negative April 08, 2024 03:01 PM [facility] ALCOHOL, ETHYL URINE PANEL Specimen Type: URINE Comment: Urine with Cr <5 is diluted or substituted. Cr between 5 and 20 is very dilute. Urine with SG of 1.001 or less is diluted or substituted. SG of 1.003 or less is very dilute. Urine with a pH <3 or >11 has been adulterated and is unsuitable for testing by our current method. Urine with pH between 3 and 4 OR 10 and 11 may have been adulterated. Ordering Provider: MEDHAT COSTELLO Report Released Date/Time: Mar 18, 2024 12:04 PM Reporting Lab: [facility] [address] [facility] [address] Performing Lab: [address] [address] ALCOHOL, ETHYL URINE NONE-DETECTED mg/dL NONE-DETEC YUE, cutoff = 10 mg/dL PH, YESY 6.2 [pH] 4-10 CREATININE, YESY 118.12 mg/dL >20 SP.GRAVITY, YESY 1.020 1.00 3-1.02 0 April 08, 2024 03:01 PM [facility] FENTANYL SCREEN PANEL Specimen Type: URINE Comment: Urine with Cr <5 is diluted or substituted. Cr between 5 and 20 is very dilute. Urine with SG of 1.001 or less is diluted or substituted. SG of 1.003 or less is very dilute. Urine with a pH <3 or >11 has been adulterated and is unsuitable for testing by our current method. Urine with pH between 3 and 4 OR 10 and 11 may have been adulterated. FENTANYL CONFIRMATION NOT SENT BY LAB. Ordering Provider: MEDHAT COSTELLO Report Released Date/Time: Mar 18, 2024 12:04 PM Reporting Lab: [address] [address] Performing Lab: [address] [address] FENTANYL SCREEN NONE-DETECTE D ng/mL Negative: Cutoff = 1.00 ng/mL PH, YESY 6.2 [pH] 4-10 CREATININE, YESY 115.13 mg/dL >20 SP.GRAVITY, YESY 1.021 H 1.00 3-1.02 0 April 08, 2024 03:01 PM [facility] AMPHETAMINES SCREEN PANEL Specimen Type: URINE Comment: Urine with Cr <5 is diluted or substituted. Cr between 5 and 20 is very dilute. Urine with SG of 1.001 or less is diluted or substituted. SG of 1.003 or less is very dilute. Urine with a pH <3 or >11 has been adulterated and is unsuitable for testing by our current method. Urine with pH between 3 and 4 OR 10 and 11 may have been adulterated. Ordering Provider: MEDHAT COSTELLO Report Released Date/Time: Mar 18, 2024 12:04 PM Reporting Lab: [address] [address] Performing Lab: [address] [address] AMPHETAMINES SCREEN NONE-DETECTED None-Detec yue, Cutoff = 1000 ng/mL PH, YESY 6.2 [pH] 4-10 CREATININE, YESY 118.12 mg/dL >20 SP.GRAVITY, YESY 1.020 1.00 3-1.02 0 April 08, 2024 03:01 PM [facility] BENZODIAZEPINES SCREEN PANEL Specimen Type: URINE Comment: Urine with Cr <5 is diluted or substituted. Cr between 5 and 20 is very dilute. Urine with SG of 1.001 or less is diluted or substituted. SG of 1.003 or less is very dilute. Urine with a pH <3 or >11 has been adulterated and is unsuitable for testing by our current method. Urine with pH between 3 and 4 OR 10 and 11 may have been adulterated. Ordering Provider: MEDHAT COSTELLO Report Released Date/Time: Mar 18, 2024 12:04 PM Reporting Lab: [address] [address] Performing Lab: [address] [address] BENZODIAZEPINES SCREEN NONE-DETECTED None-Detec yue, Cutoff = 200 ng/mL PH, YESY 6.2 [pH] 4-10 CREATININE, YESY 118.12 mg/dL >20 SP.GRAVITY, YESY 1.020 1.00 3-1.02 0 April 08, 2024 03:01 PM [facility] BUPRENORPHINE SCREEN PANEL Specimen Type: URINE Comment: Urine with Cr <5 is diluted or substituted. Cr between 5 and 20 is very dilute. Urine with SG of 1.001 or less is diluted or substituted. SG of 1.003 or less is very dilute. Urine with a pH <3 or >11 has been adulterated and is unsuitable for testing by our current method. Urine with pH between 3 and 4 OR 10 and 11 may have been adulterated. Ordering Provider: MEDHAT COSTLELO Report Released Date/Time: Mar 18, 2024 12:04 PM Reporting Lab: [address] [address] Performing Lab: [address] [address] BUPRENORPHINE (URINE) NONE-DETECTED None Detected, Cutoff = 10.0 ng/mL PH, YESY 6.2 [pH] 4-10 CREATININE, YESY 118.12 mg/dL >20 SP.GRAVITY, YESY 1.020 1.00 3-1.02 0 April 08, 2024 03:01 PM [facility] CANNABINOIDS SCREEN PANEL Specimen Type: URINE Comment: Urine with Cr <5 is diluted or substituted. Cr between 5 and 20 is very dilute. Urine with SG of 1.001 or less is diluted or substituted. SG of 1.003 or less is very dilute. Urine with a pH <3 or >11 has been adulterated and is unsuitable for testing by our current method. Urine with pH between 3 and 4 OR 10 and 11 may have been adulterated. Ordering Provider: MEDHAT COSTELLO Report Released Date/Time: Mar 18, 2024 12:04 PM Reporting Lab: [address] [address] Performing Lab: [address] [address] CANNABINOIDS SCREEN NONE-DETECTED None-Detec yue,Cutoff = 50 ng/mL PH, YESY 6.2 [pH] 4-10 CREATININE, YESY 118.12 mg/dL >20 SP.GRAVITY, YESY 1.020 1.00 3-1.02 0 April 08, 2024 03:01 PM [facility] COCAINE SCREEN PANEL Specimen Type: URINE Comment: Urine with Cr <5 is diluted or substituted. Cr between 5 and 20 is very dilute. Urine with SG of 1.001 or less is diluted or substituted. SG of 1.003 or less is very dilute. Urine with a pH <3 or >11 has been adulterated and is unsuitable for testing by our current method. Urine with pH between 3 and 4 OR 10 and 11 may have been adulterated. Ordering Provider: MEDHAT COSTELLO Report Released Date/Time: Mar 18, 2024 12:04 PM Reporting Lab: [address] [address] Performing Lab: [address] [address] COCAINE SCREEN NONE-DETECTED N one-Detec yue,Cutoff = 300 ng/mL PH, YESY 6.2 [pH] 4-10 CREATININE, YESY 118.12 mg/dL >20 SP.GRAVITY, YESY 1.020 1.00 3-1.02 0 April 08, 2024 03:01 PM [facility] OPIATES SCREEN PANEL Specimen Type: URINE Comment: Urine with Cr <5 is diluted or substituted. Cr between 5 and 20 is very dilute. Urine with SG of 1.001 or less is diluted or substituted. SG of 1.003 or less is very dilute. Urine with a pH <3 or >11 has been adulterated and is unsuitable for testing by our current method. Urine with pH between 3 and 4 OR 10 and 11 may have been adulterated. Ordering Provider: MEDHAT COSTELLO Report Released Date/Time: Mar 18, 2024 12:04 PM Reporting Lab: [address] [address] Performing Lab: [address] [address] OPIATES SCREEN NONE-DETECTED N one-Detec yue, Cutoff = 300 ng/mL PH, YESY 6.2 [pH] 4-10 CREATININE, YESY 118.12 mg/dL >20 SP.GRAVITY, YESY 1.020 1.00 3-1.02 0 April 08, 2024 03:01 PM [facility] OXYCODONE SCREEN PANEL Specimen Type: URINE Comment: Urine with Cr <5 is diluted or substituted. Cr between 5 and 20 is very dilute. Urine with SG of 1.001 or less is diluted or substituted. SG of 1.003 or less is very dilute. Urine with a pH <3 or >11 has been adulterated and is unsuitable for testing by our current method. Urine with pH between 3 and 4 OR 10 and 11 may have been adulterated. Ordering Provider: MEDHAT COSTELLO Report Released Date/Time: Mar 18, 2024 12:04 PM Reporting Lab: [address] [address] Performing Lab: [address] [address] OXYCODONE SCREEN NONE-DETECTED None-Detec yue, Cutoff = 100 ng/mL PH, YESY 6.2 [pH] 4-10 CREATININE, YESY 118.12 mg/dL >20 SP.GRAVITY, YESY 1.020 1.00 3-1.02 0 April 08, 2024 02:59 PM [facility] LIPID PANEL FASTING Specimen Type: SERUM No comment entered. Ordering Provider: BRITTANY MG Report Released Date/Time: April 08, 2024 02:44 PM Reporting Lab: [address] [address] Performing Lab: [address] [address] CHOLESTEROL 254 mg/dL H TRIGLYCERIDE 92 mg/dL 0-150 LDL calculated 169 mg/dL H 0-129 CHOL/HDL 3.8 HDL CHOLESTEROL 67 mg/dL H 40-60 April 08, 2024 02:59 PM [facility] LIVER FUNCTION Specimen Type: SERUM No comment entered. Ordering Provider: BRITTANY MG Report Released Date/Time: April 08, 2024 02:44 PM Reporting Lab: [address] [address] Performing Lab: [address] [address] PROTEIN,TOTAL 7.0 g/dL 6.0-8.3 ALBUMIN 3.9 g/dL 3.5-5.0 ALKALINE PHOSPHATASE 66 U/L 40-150 AST 22 U/L 5-34 ALT 28 U/L BILIRUBIN, TOTAL 0.4 mg/dL 0.2-1.2 April 08, 2024 02:59 PM [facility] BASIC METABOLIC PANEL (fasting) Specimen Type: SERUM No comment entered. Ordering Provider: BRITTANY MG Report Released Date/Time: April 08, 2024 02:44 PM Reporting Lab: [address] [address] Performing Lab: [address] [address] UREA NITROGEN 13 mg/dL 7-25 GLUCOSE 98 mg/dL 65-100 SODIUM 139 mmol/L 135-145 POTASSIUM 4.6 mmol/L 3.5-5.0 CHLORIDE 106 mmol/L 100-110 CO2 25 meq/L 20-30 CREATININE, Serum 0.76 mg/dL 0.50-1.40 eGFR(CKD-EPI 2020) 87 mL/min >60 April 08, 2024 02:59 PM [facility] HEMOGLOBIN A1C PANEL Specimen Type: BLOOD Comment: Values obtained from A1C measurements can vary. For atypical A1C assays, a reported value of 7.0 could actually be between 6.72 and 7.28 if measured by a reference method. A reported value of 9.0 could actually be between 8.73 and 9.27. Ref: http://www.ngsp .org/CAPdata.as p Ordering Provider: BRITTANY MG Report Released Date/Time: April 08, 2024 02:44 PM Reporting Lab: [address] [address] Performing Lab: [address] [address] HEMOGLOBIN A1C 5.2 4.0-5.6 April 08, 2024 02:59 PM [facility] TSH Specimen Type: SERUM No comment entered. Ordering Provider: BRITTANY MG Report Released Date/Time: April 08, 2024 02:44 PM Reporting [facility]: [facility] [address] Performing Lab: [facility] [address] TSH 1.54 u[IU]/mL 0.35-5.00 April 08, 2024 02:59 PM [facility] VITAMIN B12 Specimen Type: SERUM No comment entered. Ordering Provider: BRITTANY MG Report Released Date/Time: April 08, 2024 02:51 PM Reporting Lab: [address] [address] Performing Lab: [facility] [address] [facility] [address] VITAMIN B12 665 pg/mL 200-900 April 08, 2024 02:59 PM [facility] VITAMIN D (25-OH) Specimen Type: SERUM No comment entered. Ordering Provider: BRITTANY MG Report Released Date/Time: April 08, 2024 02:51 PM Reporting Lab: [address] [address] Performing Lab: [address] [address] VITAMIN D (25-OH) 16 ng/mL L 20-50 April 08, 2024 02:59 PM [facility] CBC AND DIFF (AUTO) Specimen Type: BLOOD No comment entered. Ordering Provider: BRITTANY MG Report Released Date/Time: April 08, 2024 02:44 PM Reporting Lab: [facility] [address] [facility] [address] Performing Lab: [address] [address] WBC 5.98 10*3/uL 4.50-11.00 RBC 4.55 10*6/uL 3.93-5.16 HGB 13.7 g/dL 12-15.2 HCT 41.4 36.6-45.6 MCV 91.0 fL 82-99 MCHC 33.1 g/dL 30.8-35.1 PLT 264 10*3/uL 140-360 RDW-CV 12.9 12.0-16.0 Braxton, Abs 0.56 10*3/uL 0.30-1.10 MCH 30.1 pg 26.2-32.6 Neut % 54.4 43.7-75.8 Lymph % 33.4 14.0-42.3 Braxton % 9.4 5.1-13.7 Eos % 1.8 0.4-6.8 Baso % 0.8 0.1-2.0 Neut, Abs 3.25 10*3/uL 2.20-7.60 Lymph, Abs 2.00 10*3/uL 1.00-3.20 Eos, Abs 0.11 10*3/uL 0.03-0.44 Baso, Abs 0.05 10*3/uL 0.01-0.13 Immature Gran % 0.2 0.0-0.7 Immature Gran, Abs 0.01 10*3/uL 0.00-0.06 Social History: Smoking Status (Most current) and Tobacco Use (All prior to encounter date) This section includes the most current, and the historical, smoking and tobacco- related health factors from the [place] facility where the Encounter took place. Current Smoking Status This section includes the most current smoking, or tobacco-related health factor, from the [place] facility where the Encounter took place. Date/Time Current Smoking Status Comment Facil it Mar 25, 2023 01:30 PM VA-TOBACCO FORMER USER IN [facility] [place] [facility] Tobacco Use History This section includes a history of the smoking, or tobacco-related health factors, that were collected on or before the date of the Encounter. The data comes from the [place] facility where the Encounter took place. Date/Time Smoking Status/Tobac co Use Comment Facility Mar 25, 2023 01:30 PM VA-TOBACCO QUIT 15 YRS OR MORE IN [facility] [facility] Feb 14, 2022 01:30 PM VA-TOBACCO FORMER USER IN [facility] [place] [facility] Feb 14, 2022 01:30 PM VA-TOBACCO QUIT 5 TO < 15 YRS IN [facility] [place] [facility] Nov 04, 2020 01:30 PM VA-TOBACCO NEVER USED IN [facility] [place] [facility] May 05, 2019 01:13 PM VA-TOBACCO NEVER USED IN [facility] [place] [facility] Jan 09, 2018 09:45 AM QUIT TOBACCO USE > 7 YEARS AGO IN [facility] [place] [facility] Nov 06, 2016 10:01 AM QUIT TOBACCO USE > 7 YEARS AGO Quit in 1995 IN [facility] [place] [facility] Nov 05, 2015 09:40 AM QUIT TOBACCO USE > 7 YEARS AGO Quit in 1995 IN [facility] [place] [facility] Feb 07, 2007 10:37 AM QUIT TOBACCO USE > 7 YEARS AGO quit 15 years ago IN [facility] [place] [facility] Advance Directives: All historical and current Section Date Range: From patient's date of to the date document was created. This section includes ALL of a patient's completed or amended [place] Advance and Rescinded Directives. The entries below indicate that a directive exists for the patient, but an actual copy is not included with this document. The data comes from all [place] facilities. Date Advance Directives Provider Source Nov 07, 2006 ADVANCE DIRECTIVE ARNELKANCHAN A [facility] Radiology Reports: +/- 30 days of [...] the Encounter. The data comes from all [place] treatment facilities. Date/Time Radiology Report Provider Source Feb 21, 2024 08:45 AM OUTSIDE MAMMO/SCRE ENING, INCLUDING CAD, BILAT: WICHO WEBER APRIL [id number] -[phone] F Exm Date: FEB 21, 2024@08:45 Req Phys: BRITTANY MG Pat Loc: CWM/NO/PACT 5 (Req'g Loc) Img Loc: OUTSIDE GENERAL RADIOLOGY Service: Unknown (Case [id number] COMPLETE) OUTSIDE MAMMO/SCREENING, INCLUDIN(RAD Detailed) CPT:12647 Reason for Study: annual screening mammogram Clinical History: Report Status: Electronically Filed Date Reported: FEB 21, 2024 Report: Community care exam; see CPRS/JLV for outside radiology report/results Impression: Community care exam; see CPRS/JLV for outside radiology report/results Primary Diagnostic Code: BI-RADS CATEGORY 1 (Negative) VERIFIED BY: / *ELECTRONICALLY FILED* IN [facility] [place] [facility] Encounter Notes: All associated encounter notes This section contains the clinical notes associated to the Encounter. Date/Time Encounter Note(s) Provider Source Mar 25, 2024 03:15 PM ADDENDUM: LOCAL TITLE: Addendum STANDARD TITLE: ADDENDUM DATE OF NOTE: MAR 25, 2024@15:15:31 ENTRY DATE: MAR 25, 2024@15:15:32 AUTHOR: BRITTANY MG EXP COSIGNER: URGENCY: STATUS: COMPLETED EAGLE Armando rescheduled her appt with me today Looks like she has on 04/08 with me /anahi/ JAVIER HINES Nurse Practitioner Signed: 03/25/2024 15:16 Receipt Acknowledged By: 03/25/2024 16:14 /es/ MEDHAT COSTELLO CLINICAL PHARMACIST PRACTITIONER, PAIN === --- Original Document --- 03/18/24 PAIN CLINIC NOTE: WICHO Trujillo was identified via the National Opioid Safety Initiative (OSI) Report as a [place] who is receiving a chronic opioid prescription and is due for updated UDS monitoring. For Veterans receiving chronic opioid therapy, routine UDS monitoring is recommended at least annually or more frequently if clinically indicated. Note, chronic opioid therapy is defined as having an active opioid prescription of a short-acting opioid filled for more than 90 days in the past year or use of a long acting opioid. Obtaining routine UDS samples has been identified as an important tool in opioid risk mitigation and safety. Per VA/DOD Clinical Practice Guidelines, verbal consent is required before UDS. This may documeted annually. Additionally, OIG initiative states unexpected results must be discussed with the . WICHO Trujillo, a 63 yo WHITE FEMALE, who has an active prescription for a chronic opioid and has not had a UDS completed in the last year. The patient is noted to have an upcoming PCP appt on 03/25/24, which could allow for completion of required UDS. An attempt to contact via telephone was made by Facility PMOP Coordinator, to facilitate the completion of UDS to support the facilty's goal of helping ensure safe opioid prescribing. 's idenity and location were confirmed prior to initiating this unscheduled encounter. Active Opioid: Tramadol 100mg (50mg x 2 tabs) TID PRN (last filled 02/26/24) Date of last UDS: Not previously collected Date of Next PCP/lab Appt: 03/25/2024 13:00 CWM/NO/PACT 5 04/09/2024 13:00 COM CARE-PULMONARY Plan: 1. Attempt to contact was made - Orders of updated UDS entered - [employer]DER Saurav, alerted herein to the above 2. Based on current therapy the additional drug screens were requested: [x] Tramadol 3. For assistance with interpretation of UDS/serum monitoring or additional recommendations. Please place consult through: Pharmacy Urine Drug Screen Interpretation link in the pain consult menu. References: 1.) [facility]. Evaluation of Medication Management in [facility] Facilities, [place] Year 2019. [facility] Comprehensive Healthcare Inspection Summary Report. Dec 2021. 2.) [facility]. Clinical Practice Guideline for the Use of Opioids in Management of Chronic Pain: VA/DoD Evidence Based Practice. April 2022. -- Encounter: 15 minutes /anahi/ MEDHAT COSTELLO CLINICAL PHARMACIST PRACTITIONER, PAIN Signed: 03/18/2024 12:03 Receipt Acknowledged By: 03/25/2024 15:15 /JAVIER Mccall Nurse Practitioner [facility] [place] [facility] Mar 18, 2024 11:29 AM PAIN MEDICINE OUTPATIENT NOTE: LOCAL TITLE: PAIN CLINIC NOTE STANDARD TITLE: PAIN MEDICINE OUTPATIENT NOTE DATE OF NOTE: MAR 18, 2024@11:29 ENTRY DATE: MAR 18, 2024@11:29:20 AUTHOR: MEDHAT COSTELLO EXP COSIGNER: URGENCY: STATUS: COMPLETED PAIN CLINIC NOTE Has ADDENDA WICHO Trujillo was identified via the National Opioid Safety Initiative (OSI) Report as a who is receiving a chronic opioid prescription and is due for updated UDS monitoring. For Veterans receiving chronic opioid therapy, routine UDS monitoring is recommended at least annually or more frequently if clinically indicated. Note, chronic opioid therapy is defined as having an active opioid prescription of a short-acting opioid filled for more than 90 days in the past year or use of a long acting opioid. Obtaining routine UDS samples has been identified as an important tool in opioid risk mitigation and safety. Per VA/DOD Clinical Practice Guidelines, verbal consent is required before UDS. This may documeted annually. Additionally, [employer] initiative states unexpected results must be discussed with the . WICHO Trujillo, a 63 yo WHITE FEMALE, who has an active prescription for a chronic opioid and has not had a UDS completed in the last year. The patient is noted to have an upcoming PCP appt on 03/25/24, which could allow for completion of required UDS. An attempt to contact via telephone was made by Facility PMOP Coordinator, to facilitate the completion of UDS to support the facilty's goal of helping ensure safe opioid prescribing. 's idenity and location were confirmed prior to initiating this unscheduled encounter. Active Opioid: Tramadol 100mg (50mg x 2 tabs) TID PRN (last filled 02/26/24) Date of last UDS: Not previously collected Date of Next PCP/lab Appt: 03/25/2024 13:00 CWM/NO/PACT 5 04/09/2024 13:00 COM CARE-PULMONARY Plan: 1. Attempt to contact [place] was made - Orders of updated UDS entered - ALBA Mg, alerted herein to the above 2. Based on current therapy the additional drug screens were requested: [x] Tramadol 3. For assistance with interpretation of UDS/serum monitoring or additional recommendations. Please place consult through: Pharmacy Urine Drug Screen Interpretation link in the pain consult menu. References: 1.) [facility]. Evaluation of Medication Management in [facility], [place] Year 2019. [employer] Comprehensive Healthcare Inspection Summary Report. Dec 2021. 2.) [facility]. Clinical Practice Guideline for the Use of Opioids in Management of Chronic Pain: VA/DoD Evidence Based Practice. April 2022. -- Encounter: 15 minutes /bharti COSTELLO CLINICAL PHARMACIST PRACTITIONER, PAIN Signed: 03/18/2024 12:03 Receipt Acknowledged By: 03/25/2024 15:15 /JAVIER Mccall Nurse Practitioner 03/25/2024 ADDENDUM STATUS: COMPLETED [place] Armando rescheduled her appt with me today Looks like she has on 04/08 with me /JAVIER Mccall Nurse Practitioner Signed: 03/25/2024 15:16 Receipt Acknowledged By: 03/25/2024 16:14 /bharti COSTELLO CLINICAL PHARMACIST PRACTITIONER, PAIN 04/09/2024 ADDENDUM STATUS: COMPLETED Results of standard UDS returned wright negative as consistent with current therapy. Tramadol screen results pending. Specimen Collection Date: April 08, 2024@15:01 Test name Result units Ref. range AMPHETAMINES SCREEN NONE-DETECTED Ref: None-Detected, Cutoff = 1000 ng/mL OXYCODONE SCREEN NONE-DETECTED Ref: None-Detected, Cutoff = 100 ng/mL ALCOHOL, ETHYL URINE NONE-DETECTED mg/dL Ref: NONE-DETECTED, cutoff = 10 mg/dL PH, YESY 6.2 pH 4 - 10 CREATININE, YESY 118.12 mg/dL Ref: >=20 SP.GRAVITY, YESY 1.020 g/mL 1.003 - 1.020 BENZODIAZEPINES SCREEN NONE-DETECTED Ref: None-Detected, Cutoff = 200 ng/mL COCAINE SCREEN NONE-DETECTED Ref: None-Detected,Cutoff = 300 ng/mL OPIATES SCREEN NONE-DETECTED Ref: None-Detected, Cutoff = 300 ng/mL CANNABINOIDS SCREEN NONE-DETECTED Ref: None-Detected,Cutoff = 50 ng/mL BUPRENORPHINE (URINE) NONE-DETECTED Ref: None Detected, Cutoff = 10.0 ng/mL /bharti COSTELLO CLINICAL PHARMACIST PRACTITIONER, PAIN Signed: 04/09/2024 15:04 04/14/2024 ADDENDUM STATUS: COMPLETED Results of tramadol screen returned as expected. Test Name Result Units Range --------- ------ ----- ----- TRAMADOL,URINE >5000 H ng/mL Ref: SEE BELOW DESMETHYLTRAMADOL >5000 H ng/mL Ref: SEE BELOW /anahi/ MEDHAT COSTELLO CLINICAL PHARMACIST PRACTITIONER, PAIN Signed: 04/14/2024 08:23 MEDHAT COSTELLO IN [facility]
--- OUTSIDE RECORDS SUMMARY | 2025-01-20 12:19 | XMS_ITS ---
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
--- OUTSIDE RECORDS SUMMARY | 2025-01-20 12:19 | XMS_ITS | Continuity of Care Document ---
Author Name [facility] Organization [facility] Care Team Providers Care Architectural Associate Name Role Phone [facility] Unavailable Unavailable Problems Combined list of problems from Department of Defense and Veterans Affairs facilities. It does not include entries that were removed or entered in error. Problem Status Onset Date Problem Type Date of Resolution Comments Source Carcinoma of Female Breast Inactive 006 Condition 12/27/2016 April 03, 2007 Entered By: IRMA ROBB Comment: Lt Ductal CA s/p simple mastectomy & sentinel node bx (neg) [facility] Vaginal Hysterectomy with Removal of Tube and/or Ovary Active 001 Condition April 03, 2007 Entered By: IRMA ROBB Comment: Vag Hys & BSOMay 2012 Entered By: MAGED PALOMARES Comment: for endometriosis 2000 [facility] Anxiety Active Condition [facility] ARTHRITIS UNSPEC Active Condition [facility] Breast Cancer (ICD-9-CM 174.9) Active Condition [facility] Breast Mass (ICD-9-CM 611.72) Active Condition [facility] Carcinoma of breast Active Condition [facility] Cervicalgia Active Condition [facility] Chronic osteoarthritis Active Condition [facility] Decreased Libido (ICD-9-CM 799.81) Active Condition [facility] Depression (SNOMED CT 14451686) Active Condition [facility] Family History of Malignant Neoplasm of Breast Active Condition [facility] Family History of Malignant Neoplasm of Breast (ICD-9-CM V16.3) Active Condition [facility] Family History of Malignant Neoplasm of Gastrointestinal Tract Active Condition Sep 12, 2010 Entered By: MAGED PALOMARES Comment: colon cancer [facility] Family History of Malignant Neoplasm of Ovary Active Condition [facility] Heart Murmurs Active Condition [facility] 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 Dec 27, 2016 Entered By: ALISIA SCHMIDT Comment: left breast s/p mastectomy and SN Bx (neg), HER-2 pos [facility] Hyperlipidemia (SNOMED CT 53957375) Active Condition [facility] Hypothyroid Active Condition [facility] Impaired fasting glucose (SNOMED CT 636631749) Active Condition [facility] Long-term current use of anticoagulant Active Condition [facility] Menopause, Premature * (ICD-9-CM 256.31) Active Condition [facility] Papanicolaou Smear of Cervix with Atypical squamous Cells of UNDETERMINED Signif Active Condition [facility] PE - Pulmonary embolism Active Condition Jan 10, 2024 Entered By: BRITTANY RIBERA Comment: Saddle Emboli Jan 2024 [facility] [place] [facility] Abnormal Pap Inactive Condition 12/13/2015May Entered By: MAGED PALOMARES Comment: hx ASCUS,May 08, 2010 Entered By: MAGED PALOMARES Comment: neg [address] [facility] [place] 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 Medications Combined list of outpatient medications from Department of Defense and Veterans Affairs facilities.Medications provided include 1) outpatient medications from the last 15 months, and 2) patient-reported medications. Medication Details Route Status Patient Instructions Prescription Expires Prescription Number Last Dispense Date Ordering Provider Order Date Order Qty Source APIXABAN 5MG TAB TAKE ONE-HALF TABLET BY MOUTH EVERY 12 HOURS FOR PREVENTI ON OF BLOOD CLOTS ORAL SUSPEND ED 07/18/2025 [id number] BACILIO, BRITTANY VALERY 2023 90 [facility] APIXABAN 5MG TAB TAKE ONE TABLET BY MOUTH EVERY 12 HOURS FOR PREVENTI ON OF BLOOD CLOTS ORAL DISCONT INUED BY PROVIDE R 01/10/2025 [id number] CESAR RIBERAA VALERY 2023 180 [facility] [place] [facility] ATORVASTATI N CA 20MG TAB TAKE ONE-HALF TABLET BY MOUTH ONCE DAILY FOR HIGH CHOLESTE ROL ORAL SUSPEND ED 05/07/2025 [id number] BACILIO BRITTANY VALERY 2023 45 [facility] LEVOTHYROXI NE NA 50MCG TAB (SYNTHROID) TAKE ONE TABLET BY MOUTH EVERY MORNING 30 MINUTES BEFORE BREAKFAS T TAKE ON AN EMPTY STOMACH WITH A FULL GLASS OF WATER ORAL ACTIVE 04/09/2025 [id number] 4 BACILIO, BRITTANY VALERY [address] [place] [facility] LEVOTHYROXI NE NA 50MCG TAB (SYNTHROID) TAKE ONE TABLET BY MOUTH EVERY MORNING 30 MINUTES BEFORE BREAKFAS T TAKE ON AN EMPTY STOMACH WITH A FULL GLASS OF WATER ORAL DISCONT INUED 03/25/2024 [id number] BACILIO, BRITTANY VALERY 2022 90 [facility] [place] [facility] MIRTAZAPINE 30MG TAB TAKE ONE-HALF TABLET BY MOUTH AT BEDTIME FOR DEPRESSI ON/MOOD ORAL ACTIVE 04/09/2025 [id number] 4 BACILIO, BRITTANY VALERY 2023 45 [facility] [place] [facility] [facility] MIRTAZAPINE 30MG TAB TAKE ONE-HALF TABLET BY MOUTH AT BEDTIME FOR DEPRESSI ON/MOOD ORAL DISCONT INUED 04/01/2024 [id number] BACILIO, BRITTANY VALERY 2022 45 [facility] [place] MULTIVITAMI N TAB TAKE BY MOUTH ORAL ACTIVE ZASHANNAIN,LY NN S 2012 [facility] TRAMADOL HCL 50MG TAB TAKE TWO TABLETS BY MOUTH THREE TIMES DAILY NEEDED FOR PAIN ORAL SUSPEND ED 03/19/2025 [id number] 5 BACILIO, BRITTANY VALERY 2023 180 [facility] TRAMADOL HCL 50MG TAB TAKE TWO TABLETS BY MOUTH THREE TIMES DAILY NEEDED FOR PAIN ORAL DISCONT INUED 10/09/2024 [id number] 4 BACILIO, BRITTANY VALERY 2023 180 [facility] TRAMADOL HCL 50MG TAB TAKE TWO TABLETS BY MOUTH THREE TIMES DAILY NEEDED FOR PAIN ORAL DISCONT INUED 06/25/2024 [id number] 4 BACILIO, BRITTANY VALERY 2023 180 [facility] TRAMADOL HCL 50MG TAB TAKE TWO TABLETS BY MOUTH THREE TIMES DAILY NEEDED FOR PAIN ORAL DISCONT INUED 12/18/2023 [id number] 3 BACILIO, BRITTANY VALERY 2022 180 [place] [facility] [place] [facility] Immunizations Combined list of available immunizations from the Department of Defense and Veterans Affairs facilities. Immunization Series Date Given Administered By Site Reaction Lot Number CVX Code Drug Grocery Clerk Marking Status Comments Source INFLUENZA, UNSPECIFIED FORMULATION 2022 88 complet ed [facility] INFLUENZA, UNSPECIFIED FORMULATION 2021 88 complet ed [facility] COVID-19 (MODERNA), MRNA, LNP-S, PF, 100 MCG/0.5ML DOSE OR 50 MCG/0.25ML DOSE 3 2020 207 complet ed [facility] COVID-19 (MODERNA), MRNA, LNP-S, PF, 100 MCG/0.5 ML DOSE 2 2020 207 complet ed MOD; [id number]; 1 [facility] COVID-19 (MODERNA), MRNA, LNP-S, PF, 100 MCG/0.5 ML DOSE 1 2020 207 complet ed MOD; [id number]; 1 [facility] INFLUENZA, UNSPECIFIED FORMULATION 2019 88 complet ed [facility] INFLUENZA, INJECTABLE, QUADRIVALENT 2017 158 complet ed Site: Right Deltoid [facility] INFLUENZA, SEASONAL, INJECTABLE 2016 141 complet ed Site: Right Deltoid [facility] FLU,3 YRS (HISTORICAL) 2015 88 complet ed Site: Right Deltoid [facility] TD (ADULT), 2 LF TETANUS TOXOID, PRESERVATIVE FREE, ADSORBED 2015 09 complet ed Site: Left Deltoid [facility] FLU,3 YRS (HISTORICAL) 2014 88 complet ed [facility] FLU,3 YRS (HISTORICAL) 2011 88 complet ed [facility] FLU,3 YRS (HISTORICAL) 2009 88 complet ed Site: Right Deltoid [facility] FLU,3 YRS (HISTORICAL) 2007 88 complet ed Site: Right Deltoid [facility] INFLUENZA, UNSPECIFIED FORMULATION 2005 88 complet ed [facility] FLU,3 YRS (HISTORICAL) 2005 88 complet ed [facility] TD(ADULT) UNSPECIFIED FORMULATION 2002 139 complet ed [facility] DTAP, UNSPECIFIED FORMULATION 2001 107 complet ed [facility] TDAP 2001 115 complet ed outside health care [facility] Results Combined list of recent chemistry, hematology and other laboratory results from Department of Defense and Veterans Affairs, ranging from 15 months to all on record, depending upon the facility. Order Name Results Value Reference Range Date Interpretation Specimen Comments Source TRAMADOL PNL ([employer]) TRAMADOL CUTOFF [MASS/VOLUM E] IN URINE FOR CONFIRMATOR Y METHOD >5000n g/mL 04/08 H Specimen Type: URINE Comment: REFERENCE RANGE: <100 ng/mL REFERENCE RANGE: <100 ng/mL See LDT message See Tramadol Message Test Performed by [facility], [employer], [address] [place] [address] Chris Thomas M.D., Ph.D., Director of Laboratorie s , CLIA [id number] This drug testing is for medical treatment only. Analysis was performed as non-forensi c testing and these results should be used only by healthcare providers to render diagnosis or treatment, or to monitor progress of medical conditions. LDT Message: This test was developed and its analytical performance characteris tics have been determined by [employer], [place]. It has not been cleared or approved by the U.S. Food and Drug Administrat ion. This assay has been validated pursuant to the CLIA regulations and is used for clinical purposes. Tramadol Message: Tramadol, Desmethyltr amadol detected is consistent with the use of the drug Tramadol. Healthcare Providers needing Interpretat ion assistance, please contact us at [phone] TOX ([phone]) M-F, 8am to 10pm EST TEST PERFORMED AT: , Ordering Provider: REJI COSTELLO Report Released Date/Time: Mar 18, 2024 12:04 PM Reporting Lab: [facility] [place] [facility] [address] [facility] [facility] [address] Performing Lab: [facility] [place] [facility] [address] [address] [facility] [facility] TRAMADOL PNL ([employer]) NORTRAMADOL [MASS/VOLUM E] IN URINE >5000n g/mL 04/08 H Specimen Type: URINE Comment: REFERENCE RANGE: <100 ng/mL REFERENCE RANGE: <100 ng/mL See LDT message See Tramadol Message Test Performed by [facility], [employer], [address] [place], [place] Chris Thomas M.D., Ph.D., Director of Laboratorie s , CLIA [id number] This drug testing is for medical treatment only. Analysis was performed as non-forensi c testing and these results should be used only by healthcare providers to render diagnosis or treatment, or to monitor progress of medical conditions. LDT Message: This test was developed and its analytical performance characteris tics have been determined by [employer] [place], [place]. It has not been cleared or approved by the U.S. Food and Drug Administrat ion. This assay has been validated pursuant to the CLIA regulations and is used for clinical purposes. Tramadol Message: Tramadol, Desmethyltr amadol detected is consistent with the use of the drug Tramadol. Healthcare Providers needing Interpretat ion assistance, please contact us at [phone] TOX ([phone]) M-F, 8am to 10pm EST TEST PERFORMED AT: , Ordering Provider: REJI COSTELLO Report Released Date/Time: Mar 18, 2024 12:04 PM Reporting Lab: [address] [address] Performing Lab: [facility] [address] [address] [facility] METHADONE SCREEN METHADONE [PRESENCE] IN URINE BY SCREEN METHOD None detect ed(Neg ative) 04/08 L Specimen Type: URINE Comment: YESY test are qualitative , any L or H flags only indicate a [facility] alert was sent. Ordering Provider: REJI COSTELLO Report Released Date/Time: Mar 18, 2024 12:04 PM Reporting Lab: [facility] [address] [facility] [facility] [address] Performing Lab: [facility] [address] [facility] [facility] [address] [facility] ALCOHOL, ETHYL URINE PANEL ETHANOL [MASS/VOLUM E] IN URINE NONE-D ETECTE Dmg/dL - 10 04/08 Specimen Type: URINE Comment: Urine with Cr <5 is diluted or substituted . Cr between 5 and 20 is very dilute. Urine with SG of 1.001 or less is diluted or substituted . SG of 1.003 or less is very dilute. Urine with a pH <3 or >11 has been adulterated and is unsuitable for testing by our current method. Urine with pH between 3 and 4 OR 10 and 11 may have been adulterated . Ordering Provider: REJI COSTELLO S Report Released Date/Time: Mar 18, 2024 12:04 PM Reporting Lab: [address] [address] Performing Lab: [address] [address] [facility] ALCOHOL, ETHYL URINE PANEL PH OF URINE 6.2 [pH] 4 - 10 04/08 Specimen Type: URINE Comment: Urine with Cr <5 is diluted or substituted . Cr between 5 and 20 is very dilute. Urine with SG of 1.001 or less is diluted or substituted . SG of 1.003 or less is very dilute. Urine with a pH <3 or >11 has been adulterated and is unsuitable for testing by our current method. Urine with pH between 3 and 4 OR 10 and 11 may have been adulterated . Ordering Provider: REJI COSTELLO Report Released Date/Time: Mar 18, 2024 12:04 PM Reporting Lab: [facility] [address] Performing Lab: [address] [address] [facility] ALCOHOL, ETHYL URINE PANEL CREATININE [MASS/VOLUM E] IN URINE 118.12 mg/dL 04/08 Specimen Type: URINE Comment: Urine with Cr <5 is diluted or substituted . Cr between 5 and 20 is very dilute. Urine with SG of 1.001 or less is diluted or substituted . SG of 1.003 or less is very dilute. Urine with a pH <3 or >11 has been adulterated and is unsuitable for testing by our current method. Urine with pH between 3 and 4 OR 10 and 11 may have been adulterated . Ordering Provider: REJI COSTELLO S Report Released Date/Time: Mar 18, 2024 12:04 PM Reporting Lab: [facility] [address] [address] Performing Lab: [facility] [address] [facility] ALCOHOL, ETHYL URINE PANEL SPECIFIC GRAVITY OF URINE 1.020 1.003 - 1.020 04/08 Specimen Type: URINE Comment: Urine with Cr <5 is diluted or substituted . Cr between 5 and 20 is very dilute. Urine with SG of 1.001 or less is diluted or substituted . SG of 1.003 or less is very dilute. Urine with a pH <3 or >11 has been adulterated and is unsuitable for testing by our current method. Urine with pH between 3 and 4 OR 10 and 11 may have been adulterated . Ordering Provider: REJI COSTELLO S Report Released Date/Time: Mar 18, 2024 12:04 PM Reporting Lab: [facility] [address] Performing Lab: [facility] [address] [facility] AMPHETAMI SHASHI SCREEN PANEL AMPHETAMINE S [PRESENCE] IN URINE NONE-D ETECTE D - 1000 04/08 Specimen Type: URINE Comment: Urine with Cr <5 is diluted or substituted . Cr between 5 and 20 is very dilute. Urine with SG of 1.001 or less is diluted or substituted . SG of 1.003 or less is very dilute. Urine with a pH <3 or >11 has been adulterated and is unsuitable for testing by our current method. Urine with pH between 3 and 4 OR 10 and 11 may have been adulterated . Ordering Provider: REJI COSTELLO S Report Released Date/Time: Mar 18, 2024 12:04 PM Reporting Lab: [facility] [address] Performing Lab: [address] [address] [facility] AMPHETAMI SHASHI SCREEN PANEL PH OF URINE 6.2 [pH] 4 - 10 04/08 Specimen Type: URINE Comment: Urine with Cr <5 is diluted or substituted . Cr between 5 and 20 is very dilute. Urine with SG of 1.001 or less is diluted or substituted . SG of 1.003 or less is very dilute. Urine with a pH <3 or >11 has been adulterated and is unsuitable for testing by our current method. Urine with pH between 3 and 4 OR 10 and 11 may have been adulterated . Ordering Provider: REJI COSTELLO Report Released Date/Time: Mar 18, 2024 12:04 PM Reporting Lab: [address] [address] Performing Lab: [address] [address] [facility] AMPHETAMI SHASHI SCREEN PANEL CREATININE [MASS/VOLUM E] IN URINE 118.12 mg/dL 04/08 Specimen Type: URINE Comment: Urine with Cr <5 is diluted or substituted . Cr between 5 and 20 is very dilute. Urine with SG of 1.001 or less is diluted or substituted . SG of 1.003 or less is very dilute. Urine with a pH <3 or >11 has been adulterated and is unsuitable for testing by our current method. Urine with pH between 3 and 4 OR 10 and 11 may have been adulterated . Ordering Provider: REJI COSTELLO Report Released Date/Time: Mar 18, 2024 12:04 PM Reporting Lab: [address] [address] Performing Lab: [address] [address] [facility] AMPHETAMI SHASHI SCREEN PANEL SPECIFIC GRAVITY OF URINE 1.020 1.003 - 1.020 04/08 Specimen Type: URINE Comment: Urine with Cr <5 is diluted or substituted . Cr between 5 and 20 is very dilute. Urine with SG of 1.001 or less is diluted or substituted . SG of 1.003 or less is very dilute. Urine with a pH <3 or >11 has been adulterated and is unsuitable for testing by our current method. Urine with pH between 3 and 4 OR 10 and 11 may have been adulterated . Ordering Provider: REJI COSTELLO Report Released Date/Time: Mar 18, 2024 12:04 PM Reporting Lab: [address] [address] Performing Lab: [address] [address] [facility] FENTANYL SCREEN PANEL FENTANYL [PRESENCE] IN URINE BY SCREEN METHOD NONE-D ETECTE Dng/mL 04/08 Specimen Type: URINE Comment: Urine with Cr <5 is diluted or substituted . Cr between 5 and 20 is very dilute. Urine with SG of 1.001 or less is diluted or substituted . SG of 1.003 or less is very dilute. Urine with a pH <3 or >11 has been adulterated and is unsuitable for testing by our current method. Urine with pH between 3 and 4 OR 10 and 11 may have been adulterated . FENTANYL CONFIRMATIO N NOT SENT BY LAB. Ordering Provider: REJI COSTELLO Report Released Date/Time: Mar 18, 2024 12:04 PM Reporting Lab: [address] [address] Performing Lab: [address] [address] [facility] FENTANYL SCREEN PANEL PH OF URINE 6.2 [pH] 4 - 10 04/08 Specimen Type: URINE Comment: Urine with Cr <5 is diluted or substituted . Cr between 5 and 20 is very dilute. Urine with SG of 1.001 or less is diluted or substituted . SG of 1.003 or less is very dilute. Urine with a pH <3 or >11 has been adulterated and is unsuitable for testing by our current method. Urine with pH between 3 and 4 OR 10 and 11 may have been adulterated . FENTANYL CONFIRMATIO N NOT SENT BY LAB. Ordering Provider: REJI COSTELLO Report Released Date/Time: Mar 18, 2024 12:04 PM Reporting Lab: [facility] [address] [address] Performing Lab: [address] [address] [facility] FENTANYL SCREEN PANEL CREATININE [MASS/VOLUM E] IN URINE 115.13 mg/dL 04/08 Specimen Type: URINE Comment: Urine with Cr <5 is diluted or substituted . Cr between 5 and 20 is very dilute. Urine with SG of 1.001 or less is diluted or substituted . SG of 1.003 or less is very dilute. Urine with a pH <3 or >11 has been adulterated and is unsuitable for testing by our current method. Urine with pH between 3 and 4 OR 10 and 11 may have been adulterated . FENTANYL CONFIRMATIO N NOT SENT BY LAB. Ordering Provider: REJI COSTELLO Report Released Date/Time: Mar 18, 2024 12:04 PM Reporting Lab: [facility] [address] [address] Performing Lab: [address] [address] [facility] FENTANYL SCREEN PANEL SPECIFIC GRAVITY OF URINE 1.021 1.003 - 1.020 04/08 H Specimen Type: URINE Comment: Urine with Cr <5 is diluted or substituted . Cr between 5 and 20 is very dilute. Urine with SG of 1.001 or less is diluted or substituted . SG of 1.003 or less is very dilute. Urine with a pH <3 or >11 has been adulterated and is unsuitable for testing by our current method. Urine with pH between 3 and 4 OR 10 and 11 may have been adulterated . FENTANYL CONFIRMATIO N NOT SENT BY LAB. Ordering Provider: REJI COSTELLO Report Released Date/Time: Mar 18, 2024 12:04 PM Reporting Lab: [address] [address] Performing Lab: [address] [place] [address] [facility] BENZODIAZ EPINES SCREEN PANEL BENZODIAZEP FOSTER [PRESENCE] IN URINE BY SCREEN METHOD NONE-D ETECTE D - 200 04/08 Specimen Type: URINE Comment: Urine with Cr <5 is diluted or substituted . Cr between 5 and 20 is very dilute. Urine with SG of 1.001 or less is diluted or substituted . SG of 1.003 or less is very dilute. Urine with a pH <3 or >11 has been adulterated and is unsuitable for testing by our current method. Urine with pH between 3 and 4 OR 10 and 11 may have been adulterated . Ordering Provider: REJI COSTELLO Report Released Date/Time: Mar 18, 2024 12:04 PM Reporting Lab: [address] [address] Performing Lab: [address] [address] [facility] BENZODIAZ EPINES SCREEN PANEL PH OF URINE 6.2 [pH] 4 - 10 04/08 Specimen Type: URINE Comment: Urine with Cr <5 is diluted or substituted . Cr between 5 and 20 is very dilute. Urine with SG of 1.001 or less is diluted or substituted . SG of 1.003 or less is very dilute. Urine with a pH <3 or >11 has been adulterated and is unsuitable for testing by our current method. Urine with pH between 3 and 4 OR 10 and 11 may have been adulterated . Ordering Provider: REJI COSTELLO Report Released Date/Time: Mar 18, 2024 12:04 PM Reporting Lab: [address] [address] Performing Lab: [address] [address] [facility] BENZODIAZ EPINES SCREEN PANEL CREATININE [MASS/VOLUM E] IN URINE 118.12 mg/dL 04/08 Specimen Type: URINE Comment: Urine with Cr <5 is diluted or substituted . Cr between 5 and 20 is very dilute. Urine with SG of 1.001 or less is diluted or substituted . SG of 1.003 or less is very dilute. Urine with a pH <3 or >11 has been adulterated and is unsuitable for testing by our current method. Urine with pH between 3 and 4 OR 10 and 11 may have been adulterated . Ordering Provider: REJI COSTELLO S Report Released Date/Time: Mar 18, 2024 12:04 PM Reporting Lab: [facility] [place] [facility] [address] [facility] [facility] [address] Performing Lab: [facility] [place] [facility] [address] [facility] [address] [facility] BENZODIAZ EPINES SCREEN PANEL SPECIFIC GRAVITY OF URINE 1.020 1.003 - 1.020 04/08 Specimen Type: URINE Comment: Urine with Cr <5 is diluted or substituted . Cr between 5 and 20 is very dilute. Urine with SG of 1.001 or less is diluted or substituted . SG of 1.003 or less is very dilute. Urine with a pH <3 or >11 has been adulterated and is unsuitable for testing by our current method. Urine with pH between 3 and 4 OR 10 and 11 may have been adulterated . Ordering Provider: REJI COSTELLO S Report Released Date/Time: Mar 18, 2024 12:04 PM Reporting Lab: [facility] [place] [facility] [address] [facility] [address] Performing Lab: [facility]USE[address] [address] [facility]USE [facility] BUPRENORP JOSIE SCREEN PANEL BUPRENORPHI NE [PRESENCE] IN URINE NONE-D ETECTE D 04/08 Specimen Type: URINE Comment: Urine with Cr <5 is diluted or substituted . Cr between 5 and 20 is very dilute. Urine with SG of 1.001 or less is diluted or substituted . SG of 1.003 or less is very dilute. Urine with a pH <3 or >11 has been adulterated and is unsuitable for testing by our current method. Urine with pH between 3 and 4 OR 10 and 11 may have been adulterated . Ordering Provider: REJI COSTELLO S Report Released Date/Time: Mar 18, 2024 12:04 PM Reporting Lab: [facility] [place] [address] [address] Performing Lab: [facility] [place] [address] [address] [facility] [place] [facility] BUPRENORP JOSIE SCREEN PANEL PH OF URINE 6.2 [pH] 4 - 10 04/08 Specimen Type: URINE Comment: Urine with Cr <5 is diluted or substituted . Cr between 5 and 20 is very dilute. Urine with SG of 1.001 or less is diluted or substituted . SG of 1.003 or less is very dilute. Urine with a pH <3 or >11 has been adulterated and is unsuitable for testing by our current method. Urine with pH between 3 and 4 OR 10 and 11 may have been adulterated . Ordering Provider: REJI COSTELLO Report Released Date/Time: Mar 18, 2024 12:04 PM Reporting Lab: [facility] [place] [address] [address] Performing Lab: [facility] [place] [address] [address] [facility]USE [facility] BUPRENORP JOSIE SCREEN PANEL CREATININE [MASS/VOLUM E] IN URINE 118.12 mg/dL 04/08 Specimen Type: URINE Comment: Urine with Cr <5 is diluted or substituted . Cr between 5 and 20 is very dilute. Urine with SG of 1.001 or less is diluted or substituted . SG of 1.003 or less is very dilute. Urine with a pH <3 or >11 has been adulterated and is unsuitable for testing by our current method. Urine with pH between 3 and 4 OR 10 and 11 may have been adulterated . Ordering Provider: REJI COSTELLO Report Released Date/Time: Mar 18, 2024 12:04 PM Reporting Lab: [facility] [place] [address] [address] Performing Lab: [facility]ENTERUSETS [address] [address] [facility] [place] [facility] BUPRENORP JOSIE SCREEN PANEL SPECIFIC GRAVITY OF URINE 1.020 1.003 - 1.020 04/08 Specimen Type: URINE Comment: Urine with Cr <5 is diluted or substituted . Cr between 5 and 20 is very dilute. Urine with SG of 1.001 or less is diluted or substituted . SG of 1.003 or less is very dilute. Urine with a pH <3 or >11 has been adulterated and is unsuitable for testing by our current method. Urine with pH between 3 and 4 OR 10 and 11 may have been adulterated . Ordering Provider: REJI COSTELLO S Report Released Date/Time: Mar 18, 2024 12:04 PM Reporting Lab: [facility] [place] [address] [address] Performing Lab: [address] [address] [facility] CANNABINO IDS SCREEN PANEL CANNABINOID S [PRESENCE] IN URINE BY SCREEN METHOD NONE-D ETECTE D - 50 04/08 Specimen Type: URINE Comment: Urine with Cr <5 is diluted or substituted . Cr between 5 and 20 is very dilute. Urine with SG of 1.001 or less is diluted or substituted . SG of 1.003 or less is very dilute. Urine with a pH <3 or >11 has been adulterated and is unsuitable for testing by our current method. Urine with pH between 3 and 4 OR 10 and 11 may have been adulterated . Ordering Provider: REJI COSTELLO Report Released Date/Time: Mar 18, 2024 12:04 PM Reporting Lab: [facility] [place] bookUSE[address] [address] Performing Lab: [facility] [address] [facility] CANNABINO IDS SCREEN PANEL PH OF URINE 6.2 [pH] 4 - 10 04/08 Specimen Type: URINE Comment: Urine with Cr <5 is diluted or substituted . Cr between 5 and 20 is very dilute. Urine with SG of 1.001 or less is diluted or substituted . SG of 1.003 or less is very dilute. Urine with a pH <3 or >11 has been adulterated and is unsuitable for testing by our current method. Urine with pH between 3 and 4 OR 10 and 11 may have been adulterated . Ordering Provider: REJI COSTELLO S Report Released Date/Time: Mar 18, 2024 12:04 PM Reporting Lab: [place] [facility] [place] [facility] [address] [facility] [address] Performing Lab: [facility]ITALRNOL[facility] MONTGOMERYTRN [facility]ENTERUSE[address] [address] [facility] MONTGOMERYTRN [place] [facility] CANNABINO IDS SCREEN PANEL CREATININE [MASS/VOLUM E] IN URINE 118.12 mg/dL 04/08 Specimen Type: URINE Comment: Urine with Cr <5 is diluted or substituted . Cr between 5 and 20 is very dilute. Urine with SG of 1.001 or less is diluted or substituted . SG of 1.003 or less is very dilute. Urine with a pH <3 or >11 has been adulterated and is unsuitable for testing by our current method. Urine with pH between 3 and 4 OR 10 and 11 may have been adulterated . Ordering Provider: REJI COSTELLO S Report Released Date/Time: Mar 18, 2024 12:04 PM Reporting Lab: [facility] CENTERUSETS [address] [address] Performing Lab: [facility]ITALRNOL[facility] MONTGOMERYTRN [facility]ENTERUSE[address] [address] [facility]ENTERUSE [facility] CANNABINO IDS SCREEN PANEL SPECIFIC GRAVITY OF URINE 1.020 1.003 - 1.020 04/08 Specimen Type: URINE Comment: Urine with Cr <5 is diluted or substituted . Cr between 5 and 20 is very dilute. Urine with SG of 1.001 or less is diluted or substituted . SG of 1.003 or less is very dilute. Urine with a pH <3 or >11 has been adulterated and is unsuitable for testing by our current method. Urine with pH between 3 and 4 OR 10 and 11 may have been adulterated . Ordering Provider: REJI COSTELLO S Report Released Date/Time: Mar 18, 2024 12:04 PM Reporting Lab: [facility] [place] [address] [address] Performing Lab: [facility] [address] [address] [facility] COCAINE SCREEN PANEL COCAINE [PRESENCE] IN URINE BY SCREEN METHOD NONE-D ETECTE D - 300 04/08 Specimen Type: URINE Comment: Urine with Cr <5 is diluted or substituted . Cr between 5 and 20 is very dilute. Urine with SG of 1.001 or less is diluted or substituted . SG of 1.003 or less is very dilute. Urine with a pH <3 or >11 has been adulterated and is unsuitable for testing by our current method. Urine with pH between 3 and 4 OR 10 and 11 may have been adulterated . Ordering Provider: REJI COSTELLO Report Released Date/Time: Mar 18, 2024 12:04 PM Reporting Lab: [address] [address] Performing Lab: [address] [address] [facility] COCAINE SCREEN PANEL PH OF URINE 6.2 [pH] 4 - 10 04/08 Specimen Type: URINE Comment: Urine with Cr <5 is diluted or substituted . Cr between 5 and 20 is very dilute. Urine with SG of 1.001 or less is diluted or substituted . SG of 1.003 or less is very dilute. Urine with a pH <3 or >11 has been adulterated and is unsuitable for testing by our current method. Urine with pH between 3 and 4 OR 10 and 11 may have been adulterated . Ordering Provider: REJI COSTELLO Report Released Date/Time: Mar 18, 2024 12:04 PM Reporting Lab: [address] [address] Performing Lab: [address] [address] [facility] COCAINE SCREEN PANEL CREATININE [MASS/VOLUM E] IN URINE 118.12 mg/dL 04/08 Specimen Type: URINE Comment: Urine with Cr <5 is diluted or substituted . Cr between 5 and 20 is very dilute. Urine with SG of 1.001 or less is diluted or substituted . SG of 1.003 or less is very dilute. Urine with a pH <3 or >11 has been adulterated and is unsuitable for testing by our current method. Urine with pH between 3 and 4 OR 10 and 11 may have been adulterated . Ordering Provider: REJI COSTELLO Report Released Date/Time: Mar 18, 2024 12:04 PM Reporting Lab: [address] [address] Performing Lab: [facility]ENTERUSE[address] [address] [facility] COCAINE SCREEN PANEL SPECIFIC GRAVITY OF URINE 1.020 1.003 - 1.020 04/08 Specimen Type: URINE Comment: Urine with Cr <5 is diluted or substituted . Cr between 5 and 20 is very dilute. Urine with SG of 1.001 or less is diluted or substituted . SG of 1.003 or less is very dilute. Urine with a pH <3 or >11 has been adulterated and is unsuitable for testing by our current method. Urine with pH between 3 and 4 OR 10 and 11 may have been adulterated . Ordering Provider: REJI COSTELLO Report Released Date/Time: Mar 18, 2024 12:04 PM Reporting Lab: [address] [address] Performing Lab: [facility]ENTERUSE[address] [address] [facility] OPIATES SCREEN PANEL OPIATES [PRESENCE] IN URINE BY SCREEN METHOD NONE-D ETECTE D - 300 04/08 Specimen Type: URINE Comment: Urine with Cr <5 is diluted or substituted . Cr between 5 and 20 is very dilute. Urine with SG of 1.001 or less is diluted or substituted . SG of 1.003 or less is very dilute. Urine with a pH <3 or >11 has been adulterated and is unsuitable for testing by our current method. Urine with pH between 3 and 4 OR 10 and 11 may have been adulterated . Ordering Provider: REJI COSTELLO S Report Released Date/Time: Mar 18, 2024 12:04 PM Reporting Lab: [place] [address] [address] Performing Lab: [facility] [address] [address] [facility] OPIATES SCREEN PANEL PH OF URINE 6.2 [pH] 4 - 10 04/08 Specimen Type: URINE Comment: Urine with Cr <5 is diluted or substituted . Cr between 5 and 20 is very dilute. Urine with SG of 1.001 or less is diluted or substituted . SG of 1.003 or less is very dilute. Urine with a pH <3 or >11 has been adulterated and is unsuitable for testing by our current method. Urine with pH between 3 and 4 OR 10 and 11 may have been adulterated . Ordering Provider: REJI COSTELLO Report Released Date/Time: Mar 18, 2024 12:04 PM Reporting Lab: [address] [address] Performing Lab: [address] [address] [facility] OPIATES SCREEN PANEL CREATININE [MASS/VOLUM E] IN URINE 118.12 mg/dL 04/08 Specimen Type: URINE Comment: Urine with Cr <5 is diluted or substituted . Cr between 5 and 20 is very dilute. Urine with SG of 1.001 or less is diluted or substituted . SG of 1.003 or less is very dilute. Urine with a pH <3 or >11 has been adulterated and is unsuitable for testing by our current method. Urine with pH between 3 and 4 OR 10 and 11 may have been adulterated . Ordering Provider: REJI COSTELLO Report Released Date/Time: Mar 18, 2024 12:04 PM Reporting Lab: [address] [address] Performing Lab: [address] [address] [facility] OPIATES SCREEN PANEL SPECIFIC GRAVITY OF URINE 1.020 1.003 - 1.020 04/08 Specimen Type: URINE Comment: Urine with Cr <5 is diluted or substituted . Cr between 5 and 20 is very dilute. Urine with SG of 1.001 or less is diluted or substituted . SG of 1.003 or less is very dilute. Urine with a pH <3 or >11 has been adulterated and is unsuitable for testing by our current method. Urine with pH between 3 and 4 OR 10 and 11 may have been adulterated . Ordering Provider: REJI COSTELLO Report Released Date/Time: Mar 18, 2024 12:04 PM Reporting Lab: [place] [facility] [place] [facility] [address] [facility] [address] Performing Lab: [facility] [place] [facility] [address] [facility] [address] [facility] [place] [facility] Vital Signs Combined list of inpatient and outpatient Vital Signs from Department of Defense and Veterans Affairs, ranging from 12 months to all on record, depending upon the facility. Vital Sign Value Date Comments Source SYSTOLIC BLOOD PRESSURE 121 04/08/20 24 14:29:08 [facility] [place] [facility] DIASTOLIC BLOOD PRESSURE 82 024 14:29:08 [facility] [place] [facility] PULSE OXIMETRY 97 04/08/2024 14:29:08 [facility] [place] [facility] WEIGHT 144.1 04/08/2024 14:29:08 [facility] [place] [facility] BMI 26 kg/m2 04/08/2024 14:29:08 [facility] [place] [facility] PAIN 6 04/08/2024 14:29:08 [facility] [place] [facility] TEMPERATURE 97.5 04/08/2024 14:29:08 [facility] [place] [facility] PULSE 91 04/08/2024 14[facility]29:08 [facility] [place] [facility] RESPIRATION 14 04/08/2024 14:29:08 [facility] [place] [facility] Encounters Combined list of: 1) Encounters from Department of Veterans Affairs facilities going backup to the last 18 months, not all VA inpatient encounters are included; 2) Encounters from the Department of Defense facilities going backup to 280 months. Location Location Details Encounter Type Encounter Number Reason For Visit Attending Provider ADM Date DC Date Status Disposition Source [facility] [place] [facility] En[facility] [id number] 10/03 [facility] [place] [facility] [facility] [place] En[facility] [id number] 12/04 [facility] [place] [facility] [facility] [place] [facility] Encounter [id number] 12/23 [facility] [place] [facility] [facility] [place] [facility] Encounter [id number] 12/23 [facility] [place] [facility] [facility] [place] [facility] Encounter [id number] 12/23 [facility] [place] [facility] [facility] [place] [facility] En[facility] [id number] 12/31 [facility] [place] [facility] [facility] [place] Encounter [id number] 01/01 [facility] [place] [facility] [facility] [place] En[facility] [id number] 01/02 [facility] [place] [facility] [facility] OFFICE O/P EST MOD 30 MIN [id number] Diagnos is: ICD-10- CM I26.99 Other pulmona ry embolis m without acute cor pulmona Benjamin Paula ZOËShayna RASMUSSEN 01/10 [facility] [place] MTMS BY PHARM EST 15 MIN [id number] Diagnos is: ICD-10- CM I26.99 Other pulmona ry embolis m without acute cor pulmona IVONNE Fajardo J 01/13 [facility] (6[facility]GE) QNHP OL DIG ASSMT&MGMT 5-10 [id number] Diagnos is: ICD-10- CM Z79.01 detention (curren t) use of anticoa gulants MARYSOL RAMÍREZ 01/14 [facility]GE) [facility] [place] Out[facility] Encounter [id number] 01/16 [facility] [place] [facility] [facility] [place] [facility] MTMS BY PHARM EST 15 MIN [id number] Diagnos is: ICD-10- CM Z79.01 detention (curren t) use of anticoa gulants ERIS CASTRO 01/27 [facility] [place] En[facility] [id number] 01/28 [facility] [place] [facility] [place] En[facility] [id number] 02/13 [facility] [place] [facility] En[facility] [id number] 02/16 [facility] [place] [facility] [place] En[facility] [id number] 02/20 [facility] [place] En[facility] [id number] 02/24 [facility] [place] En[facility] [id number] 03/13 [facility] [place] QNHP OL DIG ASSMT&MGMT 11-20 [id number] Diagnos is: ICD-10- CM M54.2 Cervica MARTINA Garces 03/18 [facility] En[facility] [id number] 03/25 [facility] [place] En[facility] [id number] 04/03 [facility] [place] Encounter [id number] 04/08 [facility] [place] [facility] Encounter [id number] 04/08 [facility] [place] [facility] OFFICE O/P EST MOD 30 MIN [id number] Diagnos is: ICD-10- CM I26.99 Other pulmona ry embolis m without acute cor pulmona Benjamin Paula ZOËShayna RASMUSSEN 04/08 [facility] [place] En[facility] [id number] 04/13 [facility] [place] En[facility] [id number] 04/28 [facility] [place] [facility] [facility] En[facility] [id number] 05/14 [facility] [place] QNHP OL DIG ASSMT&MGMT 5-10 [id number] Diagnos is: ICD-10- CM Z04.89 Encount er for examina tion and observa tion for oth reasons Bhargavi SIFUENTES 07/17 [facility] En[facility] [id number] 07/17 [facility] [place] Encounter [id number] 07/30 [facility] [place] Encounter [id number] 08/20 [facility] [place] En[facility] [id number] 09/14 [facility] [place] Encounter [id number] 09/28 [facility] [place] En[facility] [id number] 1.09/28 [facility] [place] Encounter [id number]/30 [facility] [place] Encounter [id number] 11/10 [facility] [place] Encounter [id number] 12/03 [facility] [place] Encounter [id number] 12/03 [place] [facility] [place] [facility] [place] [facility] Outpatient Encounter [id number] 12/03 [facility] [place] [facility] [facility] [place] [facility] Outpatient Encounter [id number] 01/13 [place] [facility] [place] [facility] Social History Combined list of available smoking, tobacco, and other social history from Department of Defense and Veterans Affairs facilities. Social History Type Response Date Comment Source Tobacco smoking status [place] FORMER USER 04/08/2024 [facility] [place] [facility] of [facility] 04/08[facility]24 [place] [facility] [place] [facility] History of tobacco use [facility] 03/25/2023 [facility] [place] [facility] History of tobacco use [place] FORMER USER 02/14/2022 [place] [facility] [place] [facility] History of tobacco use [place] NEVER USED 11/04/2020 [place] [facility] [place] [facility] History of tobacco use [place] USED 05/05/2019 [place] [facility] [place] [facility] History of tobacco use QUIT TOBACCO USE > 7 YEARS AGO 01/09/2018 [place] [facility] [place] [facility] History of tobacco use QUIT TOBACCO USE > 7 YEARS AGO 11/06/2016 [place]uit [place] 1995 [place] [facility] [place] [facility] History of tobacco use QUIT TOBACCO USE > 7 YEARS AGO 11/05/2015 [place]uit [place] 1995 [place] [facility] [place] [facility] History of tobacco use QUIT TOBACCO USE > 7 YEARS AGO 02/07/2007 quit 15 years ago [place] [facility] [place] [facility] Plan of Care List of future care activities from Department of Veterans Affairs facilities. Additional future care activities may be listed in the Assessment and Plan section. Date/Time Care Activity Care Activity Detail Facili ty 01/25/2025 AMBULATORY - MEDICINE AM[place]AT[place] [facility] [place] [facility] 04/07/2025 AMBULATORY - MEDICINE AMBULATORY - MEDICI NE [employer] [facility] 01/11/2025 Consult Order [facility] AMMOGRAPHY FEMALE SCREEN Cons [employer] Manager's Choice [employer] Advance Directives List of completed, amended, or rescinded Advance Directives on record at Department of Veterans Affairs facilities. An actual copy of the Directive is not included. Date Advance Directive Provider Source 11/07/2006 ADVANCE DIRECTIVE KANCHAN [facility]
--- OUTSIDE RECORDS SUMMARY | 2025-01-20 12:19 | XMS_ITS ---
Author Name [facility] [place] Address [address] [place] [address] Care Team Providers Care Conservation Scientist Name Role Phone BRITTANY RIBERA Primary Care [...] Name Patient's Relationship to Policy Tapia REGINA BCROSITA [facility] JOSEPH ORGANIZAT ION [facility] Jun 01, 2021 [id number] [phone] WEBER,DO NNA PATIENT ANTHEM BCBS OF CT (BLUECARD) HIGH DEDUCTIBL E HEALTH PLAN [facility] HDHP Jun 01, 2021 52 [id number] WEBER,DO NNA PATIENT [place]BS [place] MED[place]ARE SUPP[place]MEN [place] Jun 01, 2024 [id number] [phone] WEBER,DO NNA PATIENT BCBS [facility] Jun 01, 2020 [id number] [phone] WEBER,DO NNA PATIENT BCBS [facility] ORGANIZ CENTR [place] COLLShayna OTEROA Jun 01, 2016 [id number] WEBER,DO NNA PATIENT BCBS [facility]GANIZ [facility] May 02, 2011 [id number] WEBER,DO NNA PATIENT [place] OF [place] HIGH DEDUCTIBL E [facility] HDHP Jun 01, 2021 [id number] WEBER,DO NNA PATIENT BCBS OF [facility] TTS HIGH DEDUCTIBL E [facility] T HDHP Jun 01, 2021 [id number] WEBER,DO NNA PATIENT [facility] ([id number]) PRESCRIPT ION ([facility] ) Jun 01, 2021 L4TA [id number] WEBER,DO NNA PATIENT [facility] ([id number]) PRESCRIPT ION L4TA Jun 01, 2021 L4TA [id number] WEBER,DO NNA PATIENT [facility] ([id number]) PRESCRIPT ION L4TA HDHP Jun 01, 2021 L4TA [id number] WEBER,DO NNA PATIENT [facility] ([id number]) PRESCRIPT ION ([facility] ) Jun 01, 2021 L4TA [id number] WEBER,DO NNA PATIENT [facility] ([id number]) PRESCRIPT ION L4TA* May 02, 2011 L4TA [id number] [phone] WEBER,DO NNA PATIENT [facility] ([id number]) PRESCRIPT ION L4TA* May 02, 2011 L4TA [id number] [phone] WEBER,DO NNA PATIENT [facility] ([facility]) PRESCRIPT ION [facility] Jun 01, 2021 L4TA [id number] WEBER,DO NNA PATIENT MEDICARE (WNR) MEDICARE (M) PART A Jun 01, 2024 PART A [id number] DO GUS NNA PATIENT MEDICARE (WNR) MEDICARE (M) PART B Jun 01, 2024 PART B [id number] DO GUS NNA PATIENT [facility] ([facility] CE ORGANIZ NON-G ROUP Dec 02, 2001 [facility] [id number] DO VALERIO WEBER [facility]IENT [facility] PREFERRED PROVIDER ORGANIZAT ION (PPO) [facility] N Sep 01, 2007 [id number] DO VALERIO WEBER SPOUSE Selected Encounter This section includes the information on record at [place] for the Encounter. Date/Time Encounter Type Encounter Description Reason Provider Source April 08, 2024 02:30 PM OFFICE O/P EST MOD 30 MIN PRIMARY CARE/MEDICINE ICD-10-CM I26.99 Other pulmonary embolism without acute cor pulmonale BRITTANY RIBERA [facility] Encounter Template Text not used by [place] Assessments - Encounter Diagnoses This section includes the primary and secondary diagnoses documented for the Encounter. Date/Time Primary/Secondary Diagnosis Diagnosis Name Provider Source April 08, 2024 03:37 PM PRIMARY Other pulmonary embolism without acute cor pulmonale BACILIOBRITTANY RASMUSSEN [place] [facility] [place] [facility] April 08, 2024 03:37 PM SECONDARY Endometriosis, unspecified [facility] [place] [facility] April 08, 2024 03:37 PM SECONDARY Other specified hypothyroidism BACILIOBRITTANY MEZANE [place] [facility] [place] [facility] April 08, 2024 03:37 PM SECONDARY Other 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 This section includes future appointments and future orders which are active, pending or scheduled. Future Appointments This section includes appointments that were scheduled to occur 6 months from the date of the Encounter, up to a maximum of 20 appointments. The data comes from all [place] treatment [facility]. Appointment Date/Time Appointment Type Appointme nt Facility Name April 09, 2024 01:00 PM AMBULATORY - MEDICINE [facility] Active, Pending, and Scheduled Orders This section includes a listing of several types of active, pending, and scheduled orders, including clinic medications orders, diagnostic test orders, procedure orders and consult orders; where the start date of the order is 45 days before the date of the Encounter or 45 days after the date of theEncounter. The data comes from all [facility]. Test Date/Time Test Type Test Details Facility Name April 08, 2024 03:37 PM Consult Order COMMUNITY CARE-COLONOSCOPY Cons Real Estate Salesperson's Choice [facility] May 14, 2024 12:00 AM Laboratory - Chemistry Order URINALYSIS CLEAN CATCH URINE SP [facility] May 14, 2024 12:00 AM Laboratory - Microbiology Order URINE CULTURE(MWROX) URINE CLEAN CATCH SP [facility] Lab Results: +/- 30 days of the encounter This section includes the Chemistry and Hematology Lab Results on record with [place] for the patient. Radiology Reports and Pathology Reports are provided separately, in subsequent sections. Lab Results This section contains the Chemistry/Hematology Results that were resulted 30 days before or 30 daysafter the date of the Encounter. Date/Time Source Result Type Result - Unit Interpretation Reference Range Comment April 08, 2024 03:01 PM [facility] TRAMADOL PNL ([facility]) Specimen Type: URINE Comment: REFERENCE RANGE: <100 ng/mL REFERENCE RANGE: <100 ng/mL See LDT message See Tramadol Message Test Performed by Guerda Khan, [employer] [facility], [address] [place] [address] Chris Thomas M.D., Ph.D., Director of Laboratories , CLIA [id number] This drug testing is for medical treatment only. Analysis was performed as non-forensic testing and these results should be used only by healthcare providers to render diagnosis or treatment, or to monitor progress of medical conditions. LDT Message: This test was developed and its analytical performance characteristics have been determined by [employer] [place], [place]. It has not been cleared or approved by the U.S. Food and Drug Administration. This assay has been validated pursuant to the CLIA regulations and is used for clinical purposes. Tramadol Message: Tramadol, Desmethyltramad ol detected is consistent with the use of the drug Tramadol. Healthcare Providers needing Interpretation assistance, please contact us at [phone] ( ) M-F, 8am to 10pm EST TEST PERFORMED AT: , Ordering Provider: MEDHAT COSTELLO Report Released Date/Time: Mar 18, 2024 12:04 PM Reporting Lab: [facility] [address] [facility] [address] Performing Lab: [facility] [address] [address] TRAMADOL,URINE >5000 ng/mL H SEE BELOW DESMETHYLTRAMAD OL >5000 ng/mL H SEE BELOW April 08, 2024 03:01 PM [facility] METHADONE SCREEN Specimen Type: URINE Comment: YESY test are qualitative, any L or H flags only indicate a [place] alert was sent. Ordering Provider: MEDHAT COSTELLO Report Released Date/Time: Mar 18, 2024 12:04 PM Reporting Lab: [facility] [address] [facility] [address] Performing Lab: [facility] [address] [facility] [address] METHADONE SCREEN None detected(Negati ve) L Negative April 08, 2024 03:01 PM [facility] ALCOHOL, ETHYL URINE PANEL Specimen [...] Mar 18, 2024 12:04 PM Reporting Lab: [address] [address] Performing Lab: [address] [address] ALCOHOL, ETHYL URINE NONE-DETECTED mg/dL NONE-DETEC YUE, cutoff = 10 mg/dL PH, YESY 6.2 [pH] 4-10 CREATININE, YESY 118.12 mg/dL >20 SP.GRAVITY, YESY 1.020 1.00 3-1.02 0 April 08, 2024 03:01 PM [facility] AMPHETAMINES SCREEN PANEL Specimen Type: [...] Mar 18, 2024 12:04 PM Reporting Lab: [address] [address] Performing Lab: [address] [address] AMPHETAMINES SCREEN NONE-DETECTED None-Detec yue, Cutoff = 1000 ng/mL PH, YESY 6.2 [pH] 4-10 CREATININE, YESY 118.12 mg/dL >20 SP.GRAVITY, YESY 1.020 1.00 3-1.02 0 April 08, 2024 03:01 PM [facility] FENTANYL SCREEN PANEL Specimen Type: [...] Mar 18, 2024 12:04 PM Reporting Lab: [address] [address] Performing Lab: [address] [address] FENTANYL SCREEN NONE-DETECTE D ng/mL Negative: Cutoff = 1.00 ng/mL PH, YESY 6.2 [pH] 4-10 CREATININE, YESY 115.13 mg/dL >20 SP.GRAVITY, YESY 1.021 H 1.00 3-1.02 0 April 08, 2024 03:01 PM [facility] BENZODIAZEPINES SCREEN PANEL Specimen Type: [...] Mar 18, 2024 12:04 PM Reporting Lab: [address] [address] Performing Lab: [address] [address] BENZODIAZEPINES SCREEN NONE-DETECTED None-Detec yue, Cutoff = 200 ng/mL PH, YESY 6.2 [pH] 4-10 CREATININE, YESY 118.12 mg/dL >20 SP.GRAVITY, YESY 1.020 1.00 3-1.02 0 April 08, 2024 03:01 PM [facility] BUPRENORPHINE SCREEN PANEL Specimen Type: [...] Mar 18, 2024 12:04 PM Reporting Lab: [address] [address] Performing Lab: [address] [address] BUPRENORPHINE (URINE) NONE-DETECTED None Detected, Cutoff = 10.0 ng/mL PH, YESY 6.2 [pH] 4-10 CREATININE, YESY 118.12 mg/dL >20 SP.GRAVITY, YESY 1.020 1.00 3-1.02 0 April 08, 2024 03:01 PM [facility] CANNABINOIDS SCREEN PANEL Specimen Type: [...] Mar 18, 2024 12:04 PM Reporting Lab: [address] [address] Performing Lab: [address] [address] CANNABINOIDS SCREEN NONE-DETECTED None-Detec yue,Cutoff = 50 ng/mL PH, YESY 6.2 [pH] 4-10 CREATININE, YESY 118.12 mg/dL >20 SP.GRAVITY, YESY 1.020 1.00 3-1.02 0 April 08, 2024 03:01 PM [facility] OPIATES SCREEN PANEL Specimen Type: [...] Mar 18, 2024 12:04 PM Reporting Lab: [address] [address] Performing Lab: [address] [address] OPIATES SCREEN NONE-DETECTED N one-Detec yue, Cutoff = 300 ng/mL PH, YESY 6.2 [pH] 4-10 CREATININE, YESY 118.12 mg/dL >20 SP.GRAVITY, YESY 1.020 1.00 3-1.02 0 April 08, 2024 03:01 PM [facility] COCAINE SCREEN PANEL Specimen Type: [...] Mar 18, 2024 12:04 PM Reporting Lab: [address] [address] Performing Lab: [address] [address] COCAINE SCREEN NONE-DETECTED N one-Detec yue,Cutoff = 300 ng/mL PH, YESY 6.2 [pH] 4-10 CREATININE, YESY 118.12 mg/dL >20 SP.GRAVITY, YESY 1.020 1.00 3-1.02 0 April 08, 2024 03:01 PM [facility] OXYCODONE SCREEN PANEL Specimen Type: [...] Mar 18, 2024 12:04 PM Reporting Lab: [address] [address] Performing Lab: [address] [address] OXYCODONE SCREEN NONE-DETECTED None-Detec yue, Cutoff = 100 ng/mL PH, YESY 6.2 [pH] 4-10 CREATININE, YESY 118.12 mg/dL >20 SP.GRAVITY, YESY 1.020 1.00 3-1.02 0 April 08, 2024 02:59 PM [facility] LIPID PANEL FASTING Specimen Type: SERUM No comment entered. Ordering Provider: BRITTANY RIBERA Report Released Date/Time: April 08, 2024 02:44 PM Reporting Lab: [address] [address] Performing Lab: [address] [address] CHOLESTEROL 254 mg/dL H TRIGLYCERIDE 92 mg/dL 0-150 LDL calculated 169 mg/dL H 0-129 CHOL/HDL 3.8 HDL CHOLESTEROL 67 mg/dL H 40-60 April 08, 2024 02:59 PM [facility] BASIC METABOLIC PANEL (fasting) Specimen Type: SERUM No comment entered. Ordering Provider: BRITTANY RIBERA Report Released Date/Time: April 08, 2024 02:44 PM Reporting Lab: [address] [address] Performing Lab: [address] [address] UREA NITROGEN 13 mg/dL 7-25 GLUCOSE 98 mg/dL 65-100 SODIUM 139 mmol/L 135-145 POTASSIUM 4.6 mmol/L 3.5-5.0 CHLORIDE 106 mmol/L 100-110 CO2 25 meq/L 20-30 CREATININE, Serum 0.76 mg/dL 0.50-1.40 eGFR(CKD-EPI 2020) 87 mL/min >60 April 08, 2024 02:59 PM [facility] LIVER FUNCTION Specimen Type: SERUM No comment entered. Ordering Provider: BRITTANY RIBERA Report Released Date/Time: April 08, 2024 02:44 PM Reporting Lab: [facility] [address] [facility] [address] Performing Lab: [address] [address] PROTEIN,TOTAL 7.0 g/dL 6.0-8.3 ALBUMIN 3.9 g/dL 3.5-5.0 ALKALINE PHOSPHATASE 66 U/L 40-150 AST 22 U/L 5-34 ALT 28 U/L BILIRUBIN, TOTAL 0.4 mg/dL 0.2-1.2 April 08, 2024 02:59 PM [facility] HEMOGLOBIN A1C PANEL Specimen Type: BLOOD Comment: Values obtained from A1C measurements can vary. For atypical A1C assays, a reported value of 7.0 could actually be between 6.72 and 7.28 if measured by a reference method. A reported value of 9.0 could actually be between 8.73 and 9.27. Ref: http://www.ngsp .org/CAPdata.as p Ordering Provider: BRITTANY RIBERA Report Released Date/Time: April 08, 2024 02:44 PM Reporting Lab: [facility] [address] [facility] [address] Performing Lab: [address] [address] HEMOGLOBIN A1C 5.2 4.0-5.6 April 08, 2024 02:59 PM [facility] TSH Specimen Type: SERUM No comment entered. Ordering Provider: BRITTANY RIBERA Report Released Date/Time: April 08, 2024 02:44 PM Reporting Lab: [facility] [address] [facility] [facility] [address] Performing Lab: [place] [facility] [address] [facility] [facility] [address] TSH 1.54 u[IU]/mL 0.35-5.00 April 08, 2024 02:59 PM [facility] VITAMIN B12 Specimen Type: SERUM No comment entered. Ordering Provider: BRITTANY RIBERA Report Released Date/Time: April 08, 2024 02:51 PM Reporting Lab: [facility] [address] [facility] [facility] [address] Performing Lab: [facility] [address] [address] VITAMIN B12 665 pg/mL 200-900 April 08, 2024 02:59 PM [facility] VITAMIN D (25-[place]) Specimen Type: SERUM No comment entered. Ordering Provider: BRITTANY RIBERA Report Released Date/Time: April 08, 2024 02:51 PM Reporting Lab: [facility]ITAL[facility] [address] [facility] [facility] [address] Performing Lab: [facility]N [facility] [address] [address] VITAMIN D (25-[place]) 16 ng/mL L 20-50 April 08, 2024 02:59 PM [facility] CBC AND DIFF (AUTO) Specimen Type: BLOOD No comment entered. Ordering Provider: BRITTANY RIBERA Report Released Date/Time: April 08, 2024 02:44 PM Reporting Lab: [facility] [address] [address] Performing Lab: [facility] [address] [address] WBC 5.98 10*3/uL 4.50-11.00 RBC 4.55 10*6/uL 3.93-5.16 HGB 13.7 g/dL 12-15.2 HCT 41.4 36.6-45.6 MCV 91.0 fL 82-99 MCHC 33.1 g/dL 30.8-35.1 PLT 264 10*3/uL 140-360 RDW-CV 12.9 12.0-16.0 [place], Abs 0.56 10*3/uL 0.30-1.10 MCH 30.1 pg 26.2-32.6 Neut % 54.4 43.7-75.8 Lymph % 33.4 14.0-42.3 [place] % 9.4 5.1-13.7 Eos % 1.8 0.4-6.8 Baso % 0.8 0.1-2.0 Neut, Abs 3.25 10*3/uL 2.20-7.60 Lymph, Abs 2.00 10*3/uL 1.00-3.20 Eos, Abs 0.11 10*3/uL 0.03-0.44 Baso, Abs 0.05 10*3/uL 0.01-0.13 Immature Gran % 0.2 0.0-0.7 Immature Gran, Abs 0.01 10*3/uL 0.00-0.06 Vital Signs: All taken on the encounter date This section contains inpatient and outpatient Vital Signs collected on the date of the Encounter. Date/Time Temperature Pulse Blood Pressure Respiratory Rate SP02 Pain Height Weight Body Mass Index Source April 08, 2024 02:29 PM 97.5 91 121/82 14 97 6 144.1 26 [facility] Social History: Smoking Status (Most current) and Tobacco Use (All prior to encounter date) This section includes the most current, and the historical, smoking and tobacco- related health factors from the [place] facility where the Encounter took place. Current Smoking Status This section includes the most current smoking, or tobacco-related health factor, from the [place] facility where the Encounter took place. Date/Time Current Smoking Status Comment [facility] it April 08, 2024 02:30 PM [place]-TOBACCO QUIT 15 YRS OR MORE [facility] Tobacco Use History This section includes a history of the smoking, or tobacco-related health factors, that were collected on or before the date of the Encounter. The data comes from the [place] facility where the Encounter took place. Date/Time Smoking Status/Tobac co Use Comment Facility April 08, 2024 02:30 PM [place]-TOBACCO QUIT 15 YRS OR MORE [facility] [place] [facility] Mar 25, 2023 01:30 PM VA-TOBACCO FORMER USER [place] [facility] [facility] Mar 25, 2023 01:30 PM VA-TOBACCO QUIT 15 YRS OR MORE [facility] [place] [facility] Feb 14, 2022 01:30 PM VA-TOBACCO FORMER USER [place] [facility] [facility] Feb 14, 2022 01:30 PM VA-TOBACCO QUIT 5 TO < 15 YRS [facility] [place] [facility] Nov 04, 2020 01:30 PM VA-TOBACCO NEVER USED [place] [facility] [place] [facility] May 05, 2019 01:13 PM VA-TOBACCO NEVER USED [place] [facility] [facility] Jan 09, 2018 09:45 AM QUIT TOBACCO USE > 7 YEARS AGO [facility] [place] [facility] Nov 06, 2016 10:01 AM QUIT TOBACCO USE > 7 YEARS AGO Quit in 1995 [place] [facility] [place] [facility] Nov 05, 2015 09:40 AM QUIT TOBACCO USE > 7 YEARS AGO Quit in 1995 [place] [facility] [place] [facility] Feb 07, 2007 10:37 AM QUIT TOBACCO USE > 7 YEARS AGO quit 15 years ago [facility] Advance Directives: All historical and current Section Date Range: From patient's date of to the date document was created. This section includes ALL of a patient's completed or amended [place] Advance and Rescinded Directives. The entries below indicate that a directive exists for the patient, but an actual copy is not included with this document. The data comes from all [place] facilities. Date Advance Directives Provider Source Nov 07, 2006 ADVANCE DIRECTIVE [employer] [facility] Encounter Notes: All associated encounter notes This section contains the clinical notes associated to the Encounter. Date/Time Encounter Note(s) Provider Source April 08, 2024 02:26 PM PRIMARY CARE NURSE PRACTITIONER OUTPATIENT NOTE: LOCAL TITLE: NURSE PRACTITIONER OUTPATIENT NOTE STANDARD TITLE: PRIMARY CARE NURSE PRACTITIONER OUTPATIENT NOTE DATE OF NOTE: APRIL 08, 2024@14:26 ENTRY DATE: APRIL 08, 2024@14:26:08 AUTHOR: BRITTANY RIBERA EXP COSIGNER: URGENCY: STATUS: COMPLETED NURSE PRACTITIONER OUTPATIENT NOTE Has ADDENDA Chief complaint: Pt is a 63 who comes in for follow up of medical problems as noted below. HPI: Saddle Emboli had full workup at [facility] Has been on Apixaban and doing well on it, she cannot take naproxen and that helped her chronic pain Anticoag Clinic consult placed Per [facility] they wanted her to f/u with cardiology and Pulmonary (her pulmonary artery was dilated Saw Cardiology who note just no travel just yet but no need to f/u with them Heme said same She will see Pulm in a few weeks Hypothyroid has been euthyroid on levothyroxine Endometriosis had total hyst Breast CA just had normal ,mammo gets annually Chronic/joint pain has Osteoarthritis has been on daily tramadol for many years and naproxen also helps but since cannot take that she is amenable to seeing pain managemnt she is no longer needing paps had total hyst also nearly 64 age yr ago PMH: Active problems - Computerized Problem List is the source for the followin. Long-term current use of anticoagulant 2. 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 Hypothyroid 4. Carcinoma of breast 5. Anxiety 6. Cervicalgia 7. 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 Chronic osteoarthritis 9. Impaired fasting glucose (SNOMED CT 124615470) 10. Hyperlipidemia (SNOMED CT 50264667) 11. Heart Murmurs 12. Depression (SNOMED CT 50445949) 13. Family History of Malignant Neoplasm of Breast 14. Family History of Malignant Neoplasm of Ovary 15. Family History of Malignant Neoplasm of Gastrointestinal Tract colon cancer 16. Vaginal Hysterectomy with Removal of Tube and/or Ovary Vag Hys & BSO for endometriosis 2000 Allergies: Patient has answered NKA The following VA and Non-VA meds were reconciled with patient: Active and Recently Outpatient Medications (excluding Supplies): Active Outpatient Medications Status 1) APIXABAN 5MG TAB TAKE ONE TABLET BY MOUTH EVERY 12 ACTIVE HOURS FOR PREVENTION OF BLOOD CLOTS 2) TRAMADOL HCL 50MG TAB TAKE TWO TABLETS BY MOUTH THREE ACTIVE TIMES DAILY NEEDED FOR PAIN Inactive Outpatient Medications Status 1) LEVOTHYROXINE NA (SYNTHROID) 50MCG TAB TAKE ONE TABLET BY MOUTH EVERY MORNING 30 MINUTES BEFORE BREAKFAST TAKE ON AN EMPTY STOMACH WITH A FULL GLASS OF WATER 2) MIRTAZAPINE 30MG TAB TAKE ONE-HALF TABLET BY MOUTH AT BEDTIME FOR DEPRESSION/MOOD Active Non-VA Medications Status 1) Non-VA MULTIVITAMIN TAB BY MOUTH ACTIVE 5 Total Medications Allergies: Patient has answered NKA VITAL SIGNS: 97.5 F [36.4 C] (04/08/2024 14:29) 91 (04/08/2024 14:29) 14 (04/08/2024 14:29) 121/82 (04/08/2024 14:29) 6 (04/08/2024 14:29) 63 in [160.0 cm] (03/25/2023 13:32) 144.1 lb [65.36 kg] (04/08/2024 14:29) BMI: 25.6 ROS General: no fever, no unexplained weight loss or gain CV: denies CP, SOB, palpitations Lung: denies Dyspnea, cough, wheezing Abd: denies n/v/d Breast: denies discharge, lumps or pain : denies vaginal pain, discharge, pruritis Ext: denies edema, weakness, falls Skin: denies rash or other lesions Psych: denies SI Neuro: denies weakness, dizziness, falls, CORBETT PHYSI LUCRETIA EXAM General: No acute distress, speech is clear, forming sentences. HEENT: PERRL, EOMI, OP clear, No cervical lymphadenopathy, no thyromegaly CV: S1S2, RRR, no m/r/g Lung: CTAB, no wheeze, rhonchi, or crackles, good breath sounds to bases b/l Ext: no edema, warm and well perfused bilat. Skin: no lesions or rashes Musculo: FROM Head/Neck with equal strength Spine normal 3 curvature, no paraspinal TTP NEURO CN II-XII grossly intact, gait steady without shuffle MENTAL A&Ox3 Appropriate, Pleasant, Cooperative LAB RESULTS LAST 1440 HRS - NONE FOUND Future Clinic Visits 04/08/2024 14:30 CWM/NO/PACT 5 04/09/2024 13:00 COM CARE-PULMONARY ASSESSMENT AND PLAN: #Saddle Emboli Doing well on apixiban following with [facility] Saw Cardiology and heme She will see Pulm in a few weeks -Avoid NSAIDs #Hypothyroid -Cont levothyroxine #Endometriosis -had total hyst no more paps -stable #Breast CA -normal mammo, gets annually #Chronic/joint pain -Osteoarthritis -Currently on daily tramadol for many years and naproxen also helps but since cannot take that she is amenable to seeing pain managemnt Return to clinic to see me in 12 months, RTC sooner if needed. Clinical Reminders Cervical Cancer Screening: The patient has had a hysterectomy where the cervix was removed for benign reasons. Cervical cancer screening is not indicated. Date: April 08, 2018 Follow Up Colonoscopy: Colonoscopy is due based on information available to this reminder. Colonoscopy consult has been ordered. See orders tab for details. /anahi/ JAVIER HINES Nurse Practitioner Signed: 04/08/2024 15:36 05/06/2024 ADDENDUM STATUS: COMPLETED called vet let her know her LDL has increased to 169 she is fine with starting Statin will start with low intensity statin to avoid any myalgia s/e and will monitor lipids and ASCVD risk she appreciated call Rx sent for mail /anahi/ JAVIER HINES Nurse Practitioner Signed: 05/06/2024 08:52 BRITTANY RIBERA [place] [facility] [place] [facility] April 08, 2024 02:11 PM PREVENTIVE MEDICINE NURSING NOTE: LOCAL TITLE: CLINICAL REMINDERS/NURSING STANDARD TITLE: PREVENTIVE MEDICINE NURSING NOTE DATE OF NOTE: APRIL 08, 2024@14:11 ENTRY DATE: APRIL 08, 2024@14:11:22 AUTHOR: KAROL COMER COSIGNER: URGENCY: STATUS: COMPLETED Advance Directive Screen MH AD: Patient does not have an Advance Directive completed and is requesting more information. A consult was sent to Social Work Services at this visit so that an appointment can be made with the patient to review the advance directive. The patient received education about Advance Directives and written notification of his/her rights. XX Paperwork given Suicide Screen: C-SSRS Screening [place] Suicide Severity Rating Scale (C-SSRS) screener 1. Over the past month, have you wished you were or wished you could go to sleep and not wake up? No 2. Over the past month, have you had any actual thoughts of killing yourself? No 3. Over the past month, have you been thinking about how you might do this? Response not required due to responses to other questions. 4. Over the past month, have you had these thoughts and had some intention of acting on them? Response not required due to responses to other questions. 5. Over the past month, have you started to work out or worked out the details of how to kill yourself? Response not required due to responses to other questions. 6. If yes, at any time in the past month did you intend to carry out this plan? Response not required due to responses to other questions. 7. In your lifetime, have you ever done anything, started to do anything, or prepared to do anything to end your life (for example, collected pills, obtained a gun, gave away valuables, went to the roof but didn't jump)? No 8. If YES, was this within the past 3 months? Response not required due to responses to other questions. Homelessness/Food Insecurity Screen: In the past 2 months, have you been living in stable housing that you own, rent, or stay in as part of a household? Yes - Living in stable housing. Are you worried or concerned that in the next 2 months you may NOT have stable housing that you own, rent, or stay in as part of a household? No - Not worried about housing near future [facility] [employer] reports the following: Within the past 12 months, you worried whether your food would run out before you got money to buy more. Never true Within the past 12 months, the food you bought just didn't last and you didn't have money to get more. Never true Depression Screening: Perform PHQ-2 A PHQ-2 screen was performed. The score was 0 which is a negative screen for depression. Over the past two weeks, how often have you been bothered by the following problems? 1. Little interest or pleasure in doing things Not at all 2. Feeling down, depressed, or hopeless Not at all Tobacco Use Screening: The patient is a former tobacco user. The patient quit fifteen or more years ago. Pneumococcal Conjugate Vaccine (PCV15/PCV20): Refuses PCV vaccine Immunization: PNEUMOCOCCAL CONJUGATE, UNSPECIFIED FORMULATION Refusal Reason: PATIENT DECISION Patient refuses all immunization(s) in the PneumoPCV group Date Documented: 04/08/24 14:14 Alcohol Use Screen (AUDIT-C): Alcohol Screen: SCREEN FOR ALCOHOL (AUDIT-C) An alcohol screening test (AUDIT-C) was negative (score=0). 1. How often did you have a drink containing alcohol in the past year? Consider a drink to be a 12 ounce can or bottle of regular beer, 8 ounces of malt liquor, a 5 ounce glass of table wine, or a 1.5 ounce shot of liquor (like scotch, gin, or vodka). Never 2. How many drinks containing alcohol did you have on a typical day when you were drinking in the past year? Response not required due to responses to other questions. 3. How often did you have 4 or more drinks on one occasion in the past year? Response not required due to responses to other questions. RHS Screen: RHS Screen Session Format: Face to Face Environmental Check Upon inquiry, the individual reports that the environment is safe to proceed. Informed Consent to Screen and Document The individual consents to proceed with screening. The individual consents to documentation of responses. PRIMARY SCREEN: In the past 12 months, how often did a current or former intimate partner (e.g., boyfriend, girlfriend, , , sexual partner): 1. Scream or curse at you Never 2. Insult or talk down to you Never 3. Threaten you with harm Never 4. Physically hurt you Never 5. Force or pressure you to have sexual contact against your will, or when you were unable to say no Never ?? The HITS tool (items 1-4 above) is [place] copyright protected by Papa Mayorga MD, and the user has full rights to use it throughout the [place] system. PRIMARY SCREEN RESULT: The Primary Screen is NEGATIVE. The individual answered never to all forms of IPV above (i.e., answered never to all 5 items) The individual accepts education and/or resources: No EDUCATION: The individual indicated readiness to learn. Education offered during this session as noted above. The individual indicated understanding by asking relevant questions and making appropriate comments. No barriers to learning were observed or identified. COVID-19 Immunization: Refused Moderna Monovalent COVID-19 vaccine Immunization: COVID-19 (MODERNA), MRNA, LNP-S, PF, 50 MCG/0.5 ML (AGES 12+ YEARS) Refusal Reason: PATIENT DECISION Patient refuses all immunization(s) in the COVID-19 group Date Documented: 04/08/24 14:27 Tdap Immunization: The patient declines to receive the recommended dose of Tdap vaccine. Immunization: TDAP Refusal Reason: PATIENT DECISION Patient refuses all immunization(s) in the TDAP group Date Documented: 04/08/24 14:27 Herpes Zoster (Shingles) Vaccine: The patient declines to receive the recommended dose of zoster (shingles) vaccine. Immunization: ZOSTER RECOMBINANT Refusal Reason: PATIENT DECISION Patient refuses all immunization(s) in the ZOSTER group Date Documented: 04/08/24 14:28 /anahi/ KAROL COMER, MSN, RN, CNL PRIMARY CARE TEAM NURSE Signed: 04/08/2024 14:29 KAROL COMER [facility]
[2025-02-10 16:46] VITALS: BMI 28.6
--- NOTE | 2025-02-11 10:09 | HO.ANESPROP2 ---
Documented by User: Adeline Daniels NP 02/11/25 10:10 HPI - Anesthesia Eval Consult details Narrative: 64yo F for Colonoscopy Eliquis for PE ~ 2023 [facility] Past Medical History Medical History Osteoarthritis HLD (hyperlipidemia) Pulmonary embolus (~2023) Surgical History Surgical History (Updated 02/12/25 @ 08:42 by Judy Li RN) Hx of total mastectomy of left breast Status post total knee replacement, right Hx of partial thyroidectomy Social History Social History Are you a primary post anesthesia care unit nurse to a significant other at home: No Do you presently have visiting nurse or other home services: No Patient Tobacco Use Status: Former Tobacco user Use of substances other than those prescribed or required for medical reasons: No Have you been hit, kicked, punched, or otherwise hurt by someone within the past year? If so, by whom?: No Are you DNR?: No Advance Directives: No Advance Directives Information Provided: Yes Recently lost weight without trying: No Nutrition Risks: No Nutritional Risk Meds Allergies Allergy/AdvReac Type Severity Reaction Status Date / Time No Known Allergies Allergy Verified 02/10/25 16:50 Home Medications ?Medication ?Instructions ?Recorded ?Confirmed ?Last Taken ?Type apixaban 2.5 mg tablet 2.5 mg PO DAILY 02/10/25 02/12/25 Unknown History atorvastatin 10 mg tablet 10 mg PO DAILY 02/10/25 02/12/25 Unknown History levothyroxine 50 mcg tablet 50 mcg PO DAILY 02/10/25 02/12/25 02/12/25 History Exam Height,Weight and Vital Signs: Height 5 ft Weight 66.451 kg Assessment and Plan Assessment Anesthesia Assessment: Chart Reviewed Documented by User: Boris Phillips MD 02/12/25 08:56 [facility] Past Medical History Medical History Osteoarthritis HLD (hyperlipidemia) Pulmonary embolus (~2023) Family History Family history of problems with anesthesia: No Surgical History Surgical History (Updated 02/12/25 @ 08:42 by Judy Li RN) Hx of total mastectomy of left breast Status post total knee replacement, right Hx of partial thyroidectomy History of Problems with Anesthesia: No Social History Social History Are you a primary post anesthesia care unit nurse to a significant other at home: No Do you presently have visiting nurse or other home services: No Patient Tobacco Use Status: Former Tobacco user Use of substances other than those prescribed or required for medical reasons: No Have you been hit, kicked, punched, or otherwise hurt by someone within the past year? If so, by whom?: No Are you DNR?: No Advance Directives: No Advance Directives Information Provided: Yes Recently lost weight without trying: No Nutrition Risks: No Nutritional Risk Meds Allergies Allergy/AdvReac Type Severity Reaction Status Date / Time No Known Allergies Allergy Verified 02/10/25 16:50 Home Medications ?Medication ?Instructions ?Recorded ?Confirmed ?Last Taken ?Type apixaban 2.5 mg tablet 2.5 mg PO DAILY 02/10/25 02/12/25 Unknown History atorvastatin 10 mg tablet 10 mg PO DAILY 02/10/25 02/12/25 Unknown History levothyroxine 50 mcg tablet 50 mcg PO DAILY 02/10/25 02/12/25 02/12/25 History Exam Airway Mallampati Class: II TM Dist: <=3cm Neck ROM: Full Partial: Upper Loose/Missing/Broken Teeth: No Heart: ok Lungs: ok Assessment and Plan Assessment Anesthesia Assessment: Anesthesia Plan Discussed Final Anesthetic Review Family History of Problems with Anesthesia: No History of Problems with Anesthesia: No NPO: Yes ASA Class: III Final Preanesthetic Review: No Changes in Pt Med Stat, Meds/Allgs Chart Reviewed, Consent Obtained/Reviewed and Anes Risks/Benef Reviewed Patient Risk: Intermediate Procedure Risk: Low Anesthetic Plan Anesthetic Plan: MAC: and Agree w/ Assess. and Plan Disposition: Standard PACU
[2025-02-12 08:09] VITALS: BP 131/77; PULSE 104; RESP 16; TEMP 36.7; O2SAT 99; BMI 26.9
[2025-02-12] MEDS: Lactated Ringers 1,000 ML 100 ML IVCONT (08:39)
--- NOTE | 2025-02-12 08:51 | MHC.SHP ---
Pre-Procedural Eval Section A - 24 Hr Update-Section A only Date of Service: 02/12/25 Section B - Complete if H&P > 30 days Chief Complaint: screening Details of Present Illness: see H&p no changes Relevant Family History (Specify if Yes): No Relevant Social History: None Present Medications: see Short Stay Collaborative assessment Medical History: No relevant PMH History of Previous Operations: No relevant previous surgery Allergies: Allergies Allergy/AdvReac Type Severity Reaction Status Date / Time No Known Allergies Allergy Verified 02/10/25 16:50 Review of Systems Sugical H&P ROS: Negative: Constitution, Cardiovascular, Respiratory, Neurological, Psychiatric, Hem-Onc, Allergic/Immunologic, Gastrointestinal, Genitourinary, Musculoskeletal, Integumentary, Endocrine and Eyes/Ears/Nose/Throat Exam Surgical H&P Exam: Normal: HEENT, Normal: Heart, Normal: Lungs, Normal: Extremities, Normal: Abdomen, Normal: Skin and Normal: Neurological Plan Diagnosis/Plan: Unchanged I have reviewed the history and physical and performed a pertinent physical examination on my patient. No changes have occurred unless specified. Time Spent With Patient Time: Total time managing care of this patient today ____ minutes.
[2025-02-12 09:33] VITALS: BP 117/74; PULSE 101; RESP 18; TEMP 36.6; O2SAT 98
--- NOTE | 2025-02-12 09:35 | PM.OP ---
Brief Operative Note Date of Service: 02/12/25 Pre-op diagnosis: screening Post-op diagnosis: same Procedure: colonoscopy Surgeon: Virgil Aguayo MD Anesthesia: MAC Was an Circular Ripsaw Operator used for this Procedure?: No Estimated blood loss (mL): 0 Pathology: none sent Condition: stable Disposition: PACU
[2025-02-12 09:48] VITALS: BP 111/70; PULSE 93; RESP 16; TEMP 36.6; O2SAT 98
--- NOTE | 2025-02-12 10:26 | OP_ITS ---
DATE OF SERVICE: 02/12/2025 SURGEON: Virgil Aguayo MD INDICATIONS: Colon cancer screening. PREOPERATIVE DIAGNOSIS: POSTOPERATIVE DIAGNOSIS: PROCEDURE PERFORMED: Colonoscopy to the terminal ileum. ESTIMATED BLOOD LOSS: COMPLICATIONS: ANESTHESIA: Monitored anesthesia care. ASSISTANTS: SPECIMENS: DESCRIPTION OF PROCEDURE: History and physical performed. The risks and benefits of the procedure were explained to the patient. Informed consent was obtained. The patient was placed in the left lateral decubitus position. A digital rectal exam was performed and was found to be normal. The Olympus pediatric videocolonoscope was introduced into the rectum and advanced to the cecum. The cecum was identified by transillumination, palpation, and identification of the ileocecal valve. Examination was performed. The scope was removed. She tolerated the procedure well and was sent to recovery room in stable condition. FINDINGS: The terminal ileum was examined and appeared normal. The visualized colonic mucosa was within normal limits without evidence of masses or ulcers. No polyps were identified. The quality of the prep was good. There was diverticulosis involving the sigmoid. Retroflexed examination showed small internal hemorrhoids. IMPRESSION: Normal colonoscopy. RECOMMENDATION: 1. Follow up as needed. 2. Repeat colonoscopy is recommended in 10 years for average-risk individuals. . MD ARNIE Dee/SANJIV / [id number]
== END 2025-02-12 10:00 | disposition home or self-care (01) ==
PROVIDERS: PCP Nurse Practitioner Family; Visit Provider Internal Medicine Gastroenterology
PROC: 0DJD8ZZ Inspection of Lower Intestinal Tract, Via Natural or Artificial Opening Endoscopic (ICD-10-PCS; CPT 45378; principal; 2025-02-12 09:10)
DX: Z12.11 Encounter for screening for malignant neoplasm of colon (principal); K57.30 Diverticulosis of large intestine without perforation or abscess without bleeding; K64.8 Other hemorrhoids; I26.99 Other pulmonary embolism without acute cor pulmonale; E78.5 Hyperlipidemia, unspecified; E89.0 Postprocedural hypothyroidism; M19.90 Unspecified osteoarthritis, unspecified site; Z79.01 Long term (current) use of anticoagulants; Z79.899 Other long term (current) drug therapy
CPT/HCPCS: 45378; J2003; J2704; J3010